=== PATIENT | female | born 1990 | race Caucasian/White ===

== ENCOUNTER 2021-06-20 09:18 | Emergency (ER) | payer OTHER, SELFPAY ==
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
[2021-06-20 10:00] VITALS: BP 116/85; PULSE 81; RESP 19; TEMP 36.6; O2SAT 100; BMI 30.7
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
--- NOTE | 2021-06-20 11:22 | PC.NURSE ---
PATIENT AWAKE, ALERT/ORIENTED X'S 3. PT STATES LEFT KNEE PAIN 8/10, RIGHT SIDED POSTERIOR PAIN 8/10. AWAITING XRAYS.
== END 2021-06-20 11:41 | disposition home or self-care (01) ==
PROVIDERS: Emergency Provider Emergency Medicine
DX: M25.462 Effusion, left knee (principal); M25.562 Pain in left knee
CPT/HCPCS: 73564; 99283

== ENCOUNTER 2022-04-01 04:42 | Emergency (ER) | payer OTHER, SELFPAY ==
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
[2022-04-01 04:55] VITALS: BP 152/82; PULSE 97; O2SAT 97
[2022-04-01 05:00] VITALS: BP 120/78; PULSE 89; RESP 14; TEMP 36.7; O2SAT 99; BMI 30.3
--- OUTSIDE RECORDS SUMMARY | 2022-04-01 05:26 | XMS_ITS | Continuity of Care Document ---
:1990 Author Organization [facility] Address [address] [place] [address]- Care Team Providers Name Role Phone Not on Staff, PCP Primary Care Physician Unavailable Encounter [facility] Date(s): 08/23/21 - 09/22/21 [facility] [address] [place] [id number] Attending Physician: Ovidio Hernandez Admitting Physician: Ovidio Hernandez Referring Physician: Ovidio Hernandez Allergies, Adverse Reactions, Alerts Substance Reaction Severity Status amoxicillin hives Active penicillin hives Active Immunizations Given and Recorded Vaccine Date Status Refusal Reason influenza virus vaccine, inactivated 05/03/21 Given influenza virus vaccine, inactivated1 05/01/18 Given tetanus/diphtheria/pertussis, acel(Tdap) 03/24/20 Recorde d Boostrix (Tdap) (oldterm) 05/01/18 Given Gardasil (oldterm)2 12/20/16 Given Gardasil (oldterm)3 08/09/16 Given pneumococcal 23-valent vaccine 08/09/16 Given pneumococcal 13-valent vaccine 02/24/15 Given Twinrix (oldterm)4 02/24/15 Given Human Papillomavirus Vaccine 06/26/08 Recorded 1Admin Note: Flucelvax [id number] Note: GARDASIL 93Admin Note: GARDASIL 94Admin Note: #1 Medications Biktarvy oral tablet 1 tablet, By Mouth, Daily, # 30 tablet, 3 Refills, Maintenance, 08/22/21 11:29:00 EDT, Tablet, [id number], Partial fill upon patient request if the prescription is for a schedule II opioid drug., 1 tablet By Mouth Daily,x30 days, 167, cm, 11/2... Start Date: 08/22/21 Stop Date: 12/20/21 Status: Ordered Problem List Condition Effective Dates Status Health Status Informant Headache(Confirmed) Active Human immunodeficiency virus Active infection(Confirmed) Obese class I(Confirmed) Active Social History Social History Type Response Smoking Status Current every day smoker entered on: 07/10/14 Sex
--- OUTSIDE RECORDS SUMMARY | 2022-04-01 05:26 | XMS_ITS | Continuity of Care Document ---
:1990 Author Organization [facility] Address [address] [place] [id number]- Care Team Providers Name Role Phone Not on Staff, PCP Primary Care Physician Unavailable Encounter [facility] Date(s): 02/03/21 - 04/28/21 [facility] [address] [place] [id number] Attending Physician: Matthew Dent MD Admitting Physician: Matthew Dent MD Referring Physician: Not on Staff, Referring MD Allergies, Adverse Reactions, Alerts Substance Reaction Severity Status amoxicillin hives Active penicillin hives Active Immunizations Given and Recorded Vaccine Date Status Refusal Reason tetanus/diphtheria/pertussis, acel(Tdap) 03/24/20 Recorde d influenza virus vaccine, inactivated1 05/01/18 Given Boostrix (Tdap) (oldterm) 05/01/18 Given Gardasil (oldterm)2 12/20/16 Given Gardasil (oldterm)3 08/09/16 Given pneumococcal 23-valent vaccine 08/09/16 Given pneumococcal 13-valent vaccine 02/24/15 Given Twinrix (oldterm)4 02/24/15 Given Human Papillomavirus Vaccine 06/26/08 Recorded 1Admin Note: Flucelvax [id number] Note: GARDASIL 93Admin Note: GARDASIL 94Admin Note: #1 Medications Biktarvy oral tablet 1 tablet, By Mouth, Daily, # 30 tablet, 3 Refills, Maintenance, 03/31/21 12:15:00 EDT, Tablet, [id number], Partial fill upon patient request if the prescription is for a schedule II opioid drug., 1 tablet By Mouth Daily,x30 days, 167,... Start Date: 03/31/21 Stop Date: 07/29/21 Status: Ordered Problem List Condition Effective Dates Status Health Status Informant Headache(Confirmed) Active Human immunodeficiency virus Active infection(Confirmed) Social History Social History Type Response Smoking Status Current every day smoker entered on: 07/10/14 Sex
--- OUTSIDE RECORDS SUMMARY | 2022-04-01 05:26 | XMS_ITS | Continuity of Care Document ---
:1990 Author Organization [facility] Address [address] [place] [address]- Care Team Providers Name Role Phone Not on Staff, PCP Primary Care Physician Unavailable Encounter [facility] Date(s): 01/28/21 - 02/27/21 [facility] [address] [place] [id number] Allergies, Adverse Reactions, Alerts Substance Reaction Severity Status amoxicillin hives Active penicillin hives Active Immunizations Given and Recorded Vaccine Date Status Refusal Reason influenza virus vaccine, inactivated1 05/01/18 Given Boostrix (Tdap) (oldterm) 05/01/18 Given Gardasil (oldterm)2 12/20/16 Given Gardasil (oldterm)3 08/09/16 Given pneumococcal 23-valent vaccine 08/09/16 Given pneumococcal 13-valent vaccine 02/24/15 Given Twinrix (oldterm)4 02/24/15 Given Human Papillomavirus Vaccine 06/26/08 Recorded 1Admin Note: Flucelvax [id number] Note: GARDASIL 93Admin Note: GARDASIL 94Admin Note: #1 Medications Genvoya oral tablet 1 tablet, By Mouth, Daily, with food, # 30 tablet, 6 Refills, Maintenance, 12/23/18 11:38:00 EDT, Tablet, 1 tablet By Mouth Daily,x30 days,Instr:with food Start Date: 12/23/18 Stop Date: 07/21/19 Status: Ordered Problem List Condition Effective Dates Status Health Status Informant Headache(Confirmed) Active Human immunodeficiency virus Active infection(Confirmed) Social History Social History Type Response Smoking Status Current every day smoker entered on: 07/10/14 Sex
--- OUTSIDE RECORDS SUMMARY | 2022-04-01 05:26 | XMS_ITS | Continuity of Care Document ---
:1990 Author Organization [facility] Address [address] [place] [address]- Care Team Providers Name Role Phone Not on Staff, PCP Primary Care Physician Unavailable Encounter [facility] Date(s): 08/09/21 - 09/08/21 [facility] [address] [place], [place] [address] Allergies, Adverse Reactions, Alerts Substance Reaction [...] Papillomavirus Vaccine 06/26/08 Recorded 1Admin Note: Flucelvax [id number] Note: GARDASIL 93Admin Note: GARDASIL 94Admin Note: #1 Medications Biktarvy oral tablet 1 tablet, By Mouth, Daily, # 30 tablet, 3 Refills, Maintenance, 08/22/21 11:29:00 EDT, Tablet, [id number], Partial fill upon patient request if the prescription is for a schedule II opioid drug., 1 tablet By Mouth Daily,x30 days, 167, cm, 04/12... Start Date: 08/22/21 Stop Date: 12/20/21 Status: Ordered Problem List Condition Effective Dates Status Health Status Informant Headache(Confirmed) Active Human immunodeficiency virus Active infection(Confirmed) Obese class I(Confirmed) Active Social History Social History Type Response Smoking Status Current every day smoker entered on: 07/10/14 Sex
[2022-04-01 05:40] LABS: MANUAL DIFF FLAG NO
[2022-04-01 05:41] LABS: Basophils Percent Auto 0.3 % (0-2); Eosinophils Absolute Auto 0.1 X10*3/uL (0.0-0.4); Eosinophils Percent Auto 0.7 % (0-4); Hematocrit 43.2 % (37.0-47.0); Imm Gran Abs Auto 0.01 X10*3/uL (0.00-0.03); Imm Gran Pct Auto 0.1 % (0.0-0.4); Lymphocytes Absolute Auto 2.6 X10*3/uL (1.2-4.9); Lymphocytes Percent Auto 36.9 % (20-40); Mean Corpuscular HGB Conc 34.7 g/dl (31.0-35.0); Mean Corpuscular Hemoglobin 31.3 pg (27.0-33.0); Mean Platelet Volume 9.6 fL (9.4-12.3); Monocytes Absolute Auto 0.4 X10*3/uL (0.1-1.2); Monocytes Percent Auto 6.1 % (2-11); Neutrophils Absolute Auto 3.9 x10*3/uL (2.0-8.3); Neutrophils Percent Auto 55.9 % (45-73); Platelet Count 222 X10*3/uL (160-400); Red Cell Distribution Width 11.9 % (11.0-16.0)
[2022-04-01 05:46] LABS: INTERNATIONAL NORM RATIO 1.1 (0.9-1.1); Prothrombin Time 12.5 SEC (10.0-13.1)
[2022-04-01 05:58] LABS: Ethanol 102 mg/dL
[2022-04-01 06:01] LABS: Alanine Aminotransferase 10 U/L (0-31); Albumin Level 4.4 g/dL (3.5-5.0); Alkaline Phosphatase 55 U/L (39-117); Anion Gap 16 (12-20); Aspartate Amino Transferase 20 U/L (5-31); Bilirubin Total 0.5 mg/dL (0.0-1.0); Blood Urea Nitrogen 10 mg/dL (9-16); Calcium 9.1 mg/dL (8.4-10.2); Carbon Dioxide 24 mmol/L (22-29); Chloride 108 mmol/L (96-108); Creatinine Clr Calc Pharmacy 95.4; Estimated Glomerular Filt Rate > 60; Glucose Random 83 mg/dL (60-115); Potassium 3.5 mmol/L (3.3-5.1); Sodium 144 mmol/L (135-145); Total Protein 7.1 g/dL (6.5-8.0)
[2022-04-01 06:04] LABS: Troponin-I High Sensitivity < 3.5 ng/L (<3.5-17.0)
[2022-04-01 06:07] LABS: HCG Quantitative < 2 mIU/mL
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
[2022-04-01] MEDS: iohexoL 350 MG/ML 100 ML INFUS..BTL IV (06:46)
[2022-04-01] MEDS: Diphth,Pertus(ACell),Tet Adult 0.5 ML SYRINGE IM (08:45)
== END 2022-04-01 08:55 | disposition home or self-care (01) ==
PROVIDERS: Student in an Organized Health Care Education/Training Program; Emergency Provider Emergency Medicine
DX: S00.83XA Contusion of other part of head, initial encounter (principal); S80.211A Abrasion, right knee, initial encounter; S00.33XA Contusion of nose, initial encounter; Y04.2XXA Assault by strike against or bumped into by another person, initial encounter; Y93.9 Activity, unspecified; Y92.9 Unspecified place or not applicable; Y99.9 Unspecified external cause status
CPT/HCPCS: 36415; 70450; 70486; 71260; 72125; 73110; 74177; 80053; 82077; 84484; 84702; 85025; 85610; 90471; 90715; 99283; 99284; Q9967

== ENCOUNTER 2022-05-06 14:34 | Emergency (ER) | payer OTHER, SELFPAY ==
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
[2022-05-06 14:51] VITALS: BP 142/86; PULSE 89; RESP 18; O2SAT 97; BMI 28.3
[2022-05-06] MEDS: Tetracaine HCl/PF 0.5% Oph Sol 4 ML DROPS 1 DROP EYE-RIGHT (16:20)
[2022-05-06] MEDS: Fluorescein Sodium STRIP 1 STRIP EYE-RIGHT (16:21)
== END 2022-05-06 16:39 | disposition home or self-care (01) ==
PROVIDERS: Emergency Provider Emergency Medicine
DX: S05.01XA Injury of conjunctiva and corneal abrasion without foreign body, right eye, initial encounter (principal); W40.8XXA Explosion of other specified explosive materials, initial encounter; Y93.89 Activity, other specified; Y92.9 Unspecified place or not applicable; Y99.0 Civilian activity done for income or pay
CPT/HCPCS: 99283

== ENCOUNTER 2022-05-17 10:13 | Emergency (ER) | payer OTHER, SELFPAY ==
--- NOTE | 2022-05-17 11:45 | ED.URI ---
HPI - URI/Sore Throat General Chief Complaint: Upper Respiratory Symptoms <Priyanka Peters MD - Last Filed: 05/17/22 11:45> Stated Complaint: Cough Swollen Glands <Priyanka Peters MD - Last Filed: 05/17/22 11:45> Time Seen by Provider: 05/17/22 12:47 <Priyanka Peters MD - Last Filed: 05/17/22 11:45> Related Data Home Medications: Previous Rx's Medication Instructions Recorded naproxen 500 mg tablet 500 mg PO BID PRN pain #20 tabs 06/20/21 ondansetron 4 mg disintegrating 4 mg PO Q8H PRN nausea and 04/01/22 tablet vomiting #20 tabs sulfacetamide sodium 10 % eye drops 1 drp ophthalmic (eye) Q3H #5 mL 05/06/22 <Priyanka Peters MD - Last Filed: 05/17/22 11:45> Allergies/Adverse Reactions: Allergies Allergy/AdvReac Type Severity Reaction Status Date / Time amoxicillin Allergy Anaphylaxis Verified 05/17/22 11:51 Penicillins Allergy Difficulty Verified 05/17/22 11:52 Swallowing <Priyanka Peters MD - Last Filed: 05/17/22 11:45> [facility] Social History Social History: Social History Advance Directives: No Advance Directives Information Provided: No <Priyanka Peters MD - Last Filed: 05/17/22 11:45> Physical Exam Vital Signs: Vital Signs: Last Vital Signs Temp 97.0 F 05/17/22 11:50 Pulse 84 05/17/22 11:50 Resp 20 05/17/22 11:50 BP 121/58 L 05/17/22 11:50 Pulse Ox 99 05/17/22 11:50 O2 Del Method 05/17/22 11:50 BMI result Body Mass Index 29.1 <Priyanka Peters MD - Last Filed: 05/17/22 11:45> Vital Signs: Last Vital Signs Temp 97.0 F 05/17/22 11:50 Pulse 84 05/17/22 11:50 Resp 20 05/17/22 11:50 BP 121/58 L 05/17/22 11:50 Pulse Ox 99 05/17/22 11:50 O2 Del Method 05/17/22 11:50 BMI result Body Mass Index 29.1 <Miriam Johnson NP - Last Filed: 05/17/22 13:32> Course Course Course Narrative: RME positive coughing congestion upper respiratory symptoms flu RSV COVID test sent. Patient also complaining of some swelling in the glands. A rapid strep was sent. Patient was put back in triage <Priyanka Peters MD - Last Filed: 05/17/22 11:45> Medical Decision Making Medical Decision Making MDM Narrative: 10-year-old well appearing female with no significant past medical history presents to the emergency department today, with her mom, with 5 day symptoms of cough with associated headache, and nasal congestion. Serology postive for RSV. Physical exam, history, and diagnostics discussed with patient and family with no unanswered questions. Educated to manage symptoms at home with [id number] Tylenol and ibuprofen for discomfort and fever and to use asov-hfs-cgxdbfw cough medicines or mucus reducing medications. Educated to please return to the emergency department with shortness of breath, chest pain, worsening headache, worsening cough, nausea, or vomiting. Recommended to follow-up with your primary care provider for further treatment and management. <Miriam Johnson NP - Last Filed: 05/17/22 13:32> Discharge Plan Discharge Clinical Impression: Upper respiratory infection, Viral infection <Priyanka Peters MD - Last Filed: 05/17/22 11:45> Patient Disposition: Home, Self-Care <Priyanka Peters MD - Last Filed: 05/17/22 11:45> Instructions: Upper Respiratory Infection (ED), Viral Syndrome (ED), Warm Compress or Soak (ED) <Priyanka Peters MD - Last Filed: 05/17/22 11:45> Additional Instructions: Please manage symptoms at home with [id number] Tylenol and ibuprofen for discomfort and fever. You can use dykd-vld-ievjskc cough medicines or mucus producing medications. Please return to the emergency department with shortness of breath, chest pain, worsening headache, worsening cough, nausea, or vomiting. Please follow-up with your primary care provider for further treatment and management. <Priyanka Peters MD - Last Filed: 05/17/22 11:45> Prescriptions: No Action naproxen 500 mg tablet 500 mg PO BID PRN (Reason: pain) Qty: 20 0RF ondansetron 4 mg tablet,disintegrating 4 mg PO Q8H PRN (Reason: nausea and vomiting) Qty: 20 0RF sulfacetamide sodium 10 % drops 1 drp ophthalmic (eye) Q3H Qty: 5 0RF <Priyanka Peters MD - Last Filed: 05/17/22 11:45> Referrals: [facility] Family Medicine [Provider Group] [facility] Group] [facility] [Provider Group] <Priyanka Peters MD - Last Filed: 05/17/22 11:45> Stand Alone Forms: Work/School Release <Priyanka Peters MD - Last Filed: 05/17/22 11:45> Interventions: ED Discharge Assessment Last Done: 05/17/22 13:28 <Priyanka Peters MD - Last Filed: 05/17/22 11:45> Discharge Date/Time: 05/17/22 13:28 <Priyanka Peters MD - Last Filed: 05/17/22 11:45> Print Language: Italian <Priyanka Peters MD - Last Filed: 05/17/22 11:45>
[2022-05-17 11:50] VITALS: BP 121/58; PULSE 84; RESP 20; TEMP 36.1; O2SAT 99; BMI 29.1
[2022-05-17 12:24] LABS: Strep A Nucleic Acid Negative (Negative)
[2022-05-17 12:50] LABS: Influenza A PCR NEGATIVE (Negative); Influenza B PCR NEGATIVE (Negative); Resp Syncy Virus RNA Qual PCR NEGATIVE (Negative); SARS COV2 PCR INHOUSE NEGATIVE (Negative)
--- NOTE | 2022-05-17 13:21 | ED.URI ---
HPI - URI/Sore Throat General Chief Complaint: Upper Respiratory Symptoms Stated Complaint: Cough Swollen Glands Time Seen by Provider: 05/17/22 12:47 History of Present Illness HPI Narrative: 31-year-old female with no significant past medical history presents to the emergency department for 2 day history of sore throat, swollen glands, cough, and headache. She states her child has recently been ill with similar symptoms. She reports her headache worsens when she coughs and feels like a pressure on the left side of her head into her jaw. She states the headache lessens in intensity when she is resting, and not coughing. She used in at home COVID test which came back negative. She denies any chest pain, shortness of breath, pain on inspiration, fever, chills, abdominal pain. She states she does smoke cigarettes in and outside of the house. MD elicited complaint: cough and sore throat Onset (ago): day(s) (2) Consistency: constant Severity: mild Description of mucous: clear and green Able to tolerate fluids by mouth: Yes Exacerbating factors: swallowing Relieving factors: nothing Context: sick contacts Associated symptoms: denies other symptoms Treatments prior to arrival: none Related Data Previous Rx's Medication Instructions Recorded naproxen 500 mg tablet 500 mg PO BID PRN pain #20 tabs 06/20/21 ondansetron 4 mg disintegrating 4 mg PO Q8H PRN nausea and 04/01/22 tablet vomiting #20 tabs sulfacetamide sodium 10 % eye drops 1 drp ophthalmic (eye) Q3H #5 mL 05/06/22 Allergies Allergy/AdvReac Type Severity Reaction Status Date / Time amoxicillin Allergy Anaphylaxis Verified 05/17/22 11:51 Penicillins Allergy Difficulty Verified 05/17/22 11:52 Swallowing Review of Systems Review of Systems: Yes all other systems are reviewed and are negative Constitutional: Constitutional: Reports no additional constitutional complaints, Denies body ache(s), Denies chills, Denies fever(s) and Reports headache(s) Eyes: Eyes: Reports no additional eye complaints and Denies change in vision ENT: Reports system reviewed and no additional complaints, except as documented, Reports Normal hearing present, Reports headache(s), Denies hoarseness, Reports nasal congestion, Reports nasal discharge, Reports sore throat and Reports throat swelling Cardiovascular: Cardiovascular: Reports no additional cardiovascular complaints, Denies chest pain and Denies dyspnea Respiratory: Respiratory: Reports no additional respiratory complaints, Denies pain on inspiration and Denies dyspnea Gastrointestinal: Gastrointestinal: Reports no additional gastrointestinal complaints, Denies constipation, Denies diarrhea, Denies nausea and Denies vomiting Musculoskeletal: Musculoskeletal: Reports no additional musculoskeletal complaints, Denies myalgias, Denies numbness and Denies tingling Integumentary/Breasts: Skin/Breast: Reports system reviewed and no additional complaints, except as docu, Denies lesions, Denies rash and Denies sores Neurologic: Reports system reviewed and no additional complaints, except as documented, Reports Normal hearing present, Reports headache(s), Denies numbness and Denies tingling Allergic/Immunologic: Allergic/Immunologic: Reports throat swelling PMFSH Past Medical History Attestation statement: The following information was validated with the patient. Source: old records reviewed and obtained from family Social History Social History Advance Directives: No Advance Directives Information Provided: No Physical Exam Vital Signs: Vital Signs: Last Vital Signs Temp 97.0 F 05/17/22 11:50 Pulse 84 05/17/22 11:50 Resp 20 05/17/22 11:50 BP 121/58 L 05/17/22 11:50 Pulse Ox 99 05/17/22 11:50 O2 Del Method 05/17/22 11:50 BMI result Body Mass Index 29.1 Const: General: cooperative, no acute distress, alert and awake Nutritional Appearance: average body habitus Orientation/consciousness: patient oriented x3 Limitations: no limitations HEENT: Head: Yes normal to inspection, Yes normocephalic and Yes atraumatic Ears: hearing grossly normal bilaterally, external ears normal and TM's normal bilaterally General nose exam: Normal external nose present and Normal nares present Face and sinus: Yes normal facial exam and Yes sinuses nontender Mouth: Normal oral and palatal mucosa present and moist mucous membranes Teeth and gingiva: dentition normal Throat: Yes posterior oropharynx normal, Yes tonsils normal, Yes uvula midline and No cobblestoning Eyes: General: appearance normal, both eyes and all related structures Visual Lopes: normal visual lopes by confrontation Alignment and Position: alignment normal Periorbital: periorbital findings normal Eyelids: Yes eyelids normal Conjunctivae: conjunctivae normal Sclerae: sclerae normal Corneas: corneas normal Pupils: Equal, round and reactive pupils present EOM: EOMs intact bilaterally Neck: Neck: Yes normal visual inspection, Yes full ROM, No no lymphadenopathy, Yes trachea midline, No anterior neck swelling and No submandibular swelling Chest: Chest palpation & inspection: normal inspection of the chest Resp: Effort & Inspection: normal respiratory effort, Actively coughing and not labored Auscultation: clear to auscultation bilaterally, no crackles, no rhonchi and no wheezes Cardio: Rate: regular rate Rhythm: regular rhythm Skin: General skin exam: no rashes or lesions noted Neuro: General: patient oriented x3 Cranial nerves: Yes Equal, round and reactive pupils present and Yes Normal hearing present Cognition (Neuro): normal cognition Gait exam (Neuro): Normal gait present Motor exam (neuro): 5/5 motor strength present throughout Extrem: General: Yes normal to inspection, Yes full ROM and Yes capillary refill normal Psych: Appearance: grossly normal Mental Status: mental status grossly normal Speech and movement: Normal speech and movement present Affect: normal affect Attitude: cooperative Thought process: Normal thought process present Thought content: Normal thought content present Insight: Good insight present (Psych) Judgement: Good judgement present (Psych) Medical Decision Making Medical Decision Making MDM Narrative: 31-year-old female with no significant past medical history presents to the emergency department for 2 day history of sore throat, swollen glands, cough, and headache that worsens when she coughs with known sick contacts at home. Serology negative for flu a, flu B, RSV, or COVID. Physical exam inconsistent with lymphadenopathy or tonsillar exudate. Suspected viral upper respiratory infection. Physical exam, history, diagnostics, and plan discussed with patient with no unanswered questions at this time. Educated to manage symptoms at home with wntz-xvz-woqutvl Tylenol and ibuprofen for discomfort and fever and to use uynj-gjr-fcrdops cough medicines or mucus reducing medications. Educated to return to the emergency department with shortness of breath, chest pain, worsening headache, worsening cough, nausea, or vomiting. Recommended to follow-up with your primary care provider for further treatment and management. Differential Diagnoses: Differential diagnosis (upper respiratory infection) Discharge Plan Discharge Clinical Impression: Upper respiratory infection, Viral infection Patient Disposition: Home, Self-Care Instructions: Upper Respiratory Infection (ED), Viral Syndrome (ED), Warm Compress or Soak (ED) Additional Instructions: Please manage symptoms at home with cbum-nms-cuuhptg Tylenol and ibuprofen for discomfort and fever. You can use ndez-hhl-nccklhd cough medicines or mucus producing medications. Please return to the emergency department with shortness of breath, chest pain, worsening headache, worsening cough, nausea, or vomiting. Please follow-up with your primary care provider for further treatment and management. Prescriptions: No Action naproxen 500 mg tablet 500 mg PO BID PRN (Reason: pain) Qty: 20 0RF ondansetron 4 mg tablet,disintegrating 4 mg PO Q8H PRN (Reason: nausea and vomiting) Qty: 20 0RF sulfacetamide sodium 10 % drops 1 drp ophthalmic (eye) Q3H Qty: 5 0RF Referrals: [facility] Family Medicine [Provider Group] [facility]] [facility] [Provider Group] Stand Alone Forms: Work/School Release Interventions: ED Discharge Assessment Last Done: 05/17/22 13:28 Discharge Date/Time: 05/17/22 13:28 Print Language: Korean
== END 2022-05-17 13:28 | disposition home or self-care (01) ==
PROVIDERS: Emergency Medicine Emergency Medical Services; Physician Assistant Medical; Emergency Provider Emergency Medicine Emergency Medical Services
DX: J06.9 Acute upper respiratory infection, unspecified (principal); B34.9 Viral infection, unspecified; R05.9 Cough, unspecified; R51.9 Headache, unspecified; Z20.822 Contact with and (suspected) exposure to COVID-19
CPT/HCPCS: 0241U; 36415; 87651; 99282; 99283

== ENCOUNTER 2022-06-12 12:14 | Emergency (ER) | payer OTHER, SELFPAY ==
[2022-06-12 13:17] VITALS: BP 167/89; PULSE 87; RESP 16; TEMP 36.9; O2SAT 97; BMI 29.1
--- NOTE | 2022-06-12 13:17 | ED_ITS ---
HPI - General Adult General Chief complaint: Upper Respiratory Symptoms <LILIA Campos - Last Filed: 06/12/22 13:20> Stated complaint: dizzy weak <LILIA Campos Last Filed: 06/12/22 13:20> Time Seen by Provider: 06/12/22 14:26 <LILIA Campos Last Filed: 06/12/22 13:20> Source: patient <Elsie Richey NP - Last Filed: 06/12/22 15:25> Mode of arrival: ambulatory <Elsie Richey NP - Last Filed: 06/12/22 15:25> Limitations: no limitations <JARAD Cueva Last Filed: 06/12/22 15:25> History of Present Illness HPI narrative: 31-year-old female here with sore throat, cough, body aches, generalized malaise, bilateral ear pain for 3 days. No fevers, vomiting, diarrhea, chest pain, shortness of breath. <JARAD Cueva Last Filed: 06/12/22 15:25> Related Data Home medications: Previous Rx's Medication Instructions Recorded naproxen 500 mg tablet 500 mg PO BID PRN pain #20 tabs 06/20/21 ondansetron 4 mg disintegrating 4 mg PO Q8H PRN nausea and 04/01/22 tablet vomiting #20 tabs sulfacetamide sodium 10 % eye drops 1 drp ophthalmic (eye) Q3H #5 mL 05/06/22 azithromycin 250 mg tablet See Rx Instructions PO .COMPLEX #6 06/12/22 tabs <LILIA Campos Last Filed: 06/12/22 13:20> Allergies/adverse reactions: Allergies Allergy/AdvReac Type Severity Reaction Status Date / Time amoxicillin Allergy Anaphylaxis Verified 05/17/22 11:51 Penicillins Allergy Difficulty Verified 05/17/22 11:52 Swallowing <LILIA Campos Last Filed: 06/12/22 13:20> Review of Systems Review of Systems: Yes all other systems are reviewed and are negative <JARAD Cueva Last Filed: 06/12/22 15:25> Constitutional: Constitutional: Reports no additional constitutional complaints, Reports body ache(s), Denies chills, Denies fever(s), Reports headache(s), Reports malaise and Denies weakness <Elsie Richey W[employer]LESS CONSTRUCTION MANAGER - Last Filed: 06/12/22 15:25> Eyes: Eyes: Reports no additional eye complaints and Denies change in vision <Elsie Richey [employer]ESS CONSTRUCTION MANAGER - Last Filed: 06/12/22 15:25> ENT: Reports system reviewed and no additional complaints, except as documented, Denies dizziness, Reports headache(s), Denies nasal congestion, Denies nasal discharge, Denies neck pain and Reports sore throat <Elsie Richey [employer]LESS CONSTRUCTION MANAGER - Last Filed: 06/12/22 15:25> Cardiovascular: Cardiovascular: Reports no additional cardiovascular complaints, Denies chest pain, Denies leg edema and Denies dyspnea <Elsie Richey [employer]LESS CONSTRUCTION MANAGER - Last Filed: 06/12/22 15:25> Respiratory: Respiratory: Reports no additional respiratory complaints, Reports cough and Denies dyspnea <Elsie Richey [employer]LESS CONSTRUCTION MANAGER - Last Filed: 06/12/22 15:25> Gastrointestinal: Gastrointestinal: Reports no additional gastrointestinal complaints, Denies abdominal pain, Denies diarrhea, Denies nausea and Denies vomiting <Elsie Richey [employer]LESS CONSTRUCTION MANAGER - Last Filed: 06/12/22 15:25> Genitourinary: Genitourinary: Reports no additional female genitourinary complaints and Denies urinary incontinence <Elsie Richey [employer]LESS CONSTRUCTION MANAGER - Last Filed: 06/12/22 15:25> Musculoskeletal: Musculoskeletal: Reports no additional musculoskeletal complaints, Denies back pain, Denies arthralgias, Denies joint swelling, Denies neck pain, Denies numbness and Denies tingling <Elsie Richey [employer]LESS CONSTRUCTION MANAGER - Last Filed: 06/12/22 15:25> Integumentary/Breasts: Skin/Breast: Reports system reviewed and no additional complaints, except as docu and Denies rash <Elsie Richey W[employer]LESS CONSTRUCTION MANAGER - Last Filed: 06/12/22 15:25> Neurologic: Reports system reviewed and no additional complaints, except as documented, Denies dizziness, Reports headache(s), Denies numbness, Denies tingling and Denies weakness <Elsie Richey NP - Last Filed: 06/12/22 15:25> [facility] Past Medical History Attestation statement: The following information was validated with the patient. <Elsie Richey NP - Last Filed: 06/12/22 15:25> Source: old records reviewed and nursing notes reviewed <Elsie Richey NP - Last Filed: 06/12/22 15:25> Social History Social History: Social History Advance Directives: No Advance Directives Information Provided: No <LILIA Campos - Last Filed: 06/12/22 13:20> Physical Exam ED Vital Signs: Vital Signs - 24 hr 06/12/22 13:17 06/12/22 15:19 Temperature 98.5 F 98.4 F Pulse Rate 87 89 Respiratory Rate 16 18 Blood Pressure 167/89 H 137/78 Pulse Oximetry 97 96 Oxygen Delivery Method Room Air Room Air BMI result Body Mass Index 29.1 <LILIA Campos - Last Filed: 06/12/22 13:20> Vital Signs - 24 hr 06/12/22 13:17 06/12/22 15:19 Temperature 98.5 F 98.4 F Pulse Rate 87 89 Respiratory Rate 16 18 Blood Pressure 167/89 H 137/78 Pulse Oximetry 97 96 Oxygen Delivery Method Room Air Room Air BMI result Body Mass Index 29.1 <Elsie Richey NP - Last Filed: 06/12/22 15:25> Const General: cooperative, healthy appearing, comfortable and no acute distress <Elsie Richey NP - Last Filed: 06/12/22 15:25> Orientation/consciousness: patient oriented x3 <Elsie Richey NP - Last Filed: 06/12/22 15:25> Limitations: no limitations <Elsie Richey NP - Last Filed: 06/12/22 15:25> HENMT Head: Yes normal to inspection <Elsie Richey NP - Last Filed: 06/12/22 15:25> Ears: TM abnormal bulging and erythematous <Elsie Richey NP - Last Filed: 06/12/22 15:25> General nose exam: Normal external nose present <Elsie Richey NP - Last Filed: 06/12/22 15:25> Mouth: Normal oral and palatal mucosa present <Elsie Richey NP - Last Filed: 06/12/22 15:25> Throat: Yes posterior oropharynx normal, Yes tonsils normal and Yes uvula midline <Elsie Richey NP - Last Filed: 06/12/22 15:25> Eyes General: appearance normal, both eyes and all related structures <Elsie Richey NP - Last Filed: 06/12/22 15:25> Pupils: Equal, round and reactive pupils present <Elsie Richey NP - Last Filed: 06/12/22 15:25> Neck Neck: Yes normal visual inspection, Yes full ROM, Yes no lymphadenopathy and Yes no meningeal signs <Elsie Richey NP - Last Filed: 06/12/22 15:25> Chest Chest palpation & inspection: normal inspection of the chest <Elsie Richey NP - Last Filed: 06/12/22 15:25> Resp Effort & Inspection: normal respiratory effort <Elsie Richey NP - Last Filed: 06/12/22 15:25> Auscultation: clear to auscultation bilaterally <Elsie Richey NP - Last Filed: 06/12/22 15:25> Cardio Rate: regular rate <Elsie Richey NP - Last Filed: 06/12/22 15:25> Rhythm: regular rhythm <Elsie Richey NP - Last Filed: 06/12/22 15:25> Peripheral pulses: Peripheral pulses 2+ throughout <Elsie Richey NP - Last Filed: 06/12/22 15:25> GI Inspection: Yes normal to inspection <Elsie Richey NP - Last Filed: 06/12/22 15:25> Palpation (GI): Soft to palpation and nontender <Elsie Richey NP - Last Filed: 06/12/22 15:25> General: Yes no CVA tenderness <Elsie Richey NP - Last Filed: 06/12/22 15:25> Back/Spine/Pelvis Back: no CVA tenderness <Elsie Richey NP - Last Filed: 06/12/22 15:25> Thoracic/Lumbar Spine: thoracic and lumbar spine normal to inspection <Elsie Richey NP - Last Filed: 06/12/22 15:25> Skin General skin exam: no rashes or lesions noted <Elsie Richey NP - Last Filed: 06/12/22 15:25> Neuro General: patient oriented x3, moves all extremities and no meningeal signs <Elsie Richey NP - Last Filed: 06/12/22 15:25> Cranial nerves: Yes Equal, round and reactive pupils present <Elsie Richey NP - Last Filed: 06/12/22 15:25> Gait exam (Neuro): Normal gait present <Elsie Richey NP - Last Filed: 06/12/22 15:25> Course Course Course Narrative: E-13:20PM - 31yoF presenting to the ED c c/o 2 days or a sore throat, chills, fatigue, body aches, no appetite and a Cough with blood streaked emesis. Denies any other symptoms related to this. Works at the [employer]. Plan: Will order COVID/RSV/flu swab and rapid strep. Patient will be sent back to the waiting room to be evaluated in [facility]. <LILIA Campos - Last Filed: 06/12/22 13:20> Reevaluation(s) Reevaluation #1: COVID screen is positive. No hypoxia tachypnea. Lungs are clear. Patient has otitis media on exam will require a course of antibiotics. Reviewed worrisome signs and symptoms of when to return to the emergency room. Comfortable plan for discharge home. <Elsie Richey NP - Last Filed: 06/12/22 15:25> Medical Decision Making Medical Decision Making MDM Narrative: 31-year-old female here with 3 days of generalized malaise, cough, sore throat, ear pain, headache, chills. Exam consistent bilateral OM Otherwise exam normal Vital stable Will send testing for flu, COVID, RSV <Elsie Richey NP - Last Filed: 0 06/12/22 15:25> Differential Diagnosis Differential Diagnoses: The differential diagnosis associated with the presentation includes <Elsie Richey NP - Last Filed: 06/12/22 15:25> Otitis media, influenza, viral syndrome <Elsie Richey NP - Last Filed: 06/12/22 15:25> Lab Data MDM Lab Attestation statement: I reviewed the patient's lab results. <Elsie Richey NP - Last Filed: 06/12/22 15:25> Labs: Lab Results 06/12/22 06/12/22 Range/Units 14:22 14:22 Influenza Type A (PCR) NEGATIVE (Negative) Influenza Type B (PCR) NEGATIVE (Negative) RSV RNA Qual (PCR) NEGATIVE (Negative) SARS-CoV-2 RNA (RT-PCR) POSITIVE A (Negative) S. pyogenes GrpA REYES Negative (Negative) <LILIA Campos - Last Filed: 06/12/22 13:20> Lab Results 06/12/22 06/12/22 Range/Units 14:22 14:22 Influenza Type A (PCR) NEGATIVE (Negative) Influenza Type B (PCR) NEGATIVE (Negative) RSV RNA Qual (PCR) NEGATIVE (Negative) SARS-CoV-2 RNA (RT-PCR) POSITIVE A (Negative) S. pyogenes GrpA REYES Negative (Negative) <Elsie Richey NP - Last Filed: 06/12/22 15:25> Prescription Management I considered prescription management with: Antiviral <Elsie Richey NP - Last Filed: 06/12/22 15:25> COVID screen positive. I discussed of the medication Paxlovid with the patient. We discussed that the medication is not FDA approved and there is only an emergency use authorization for the medication. Discussed the course of medication and common side effects. At this point patient declined treatment with this medication. <Elsie Richey NP - Last Filed: 06/12/22 15:25> Discharge Plan Discharge Clinical Impression: Otitis media, COVID-19 <LILIA Campos - Last Filed: 06/12/22 13:20> Patient Disposition: Home, Self-Care <LILIA Campos - Last Filed: 06/12/22 13:20> Instructions: Ear Infection (ED), COVID-19 (Coronavirus Disease 2019) (ED) <LILIA Campos - Last Filed: 06/12/22 13:20> Additional Instructions: Testing for strep, flu. RSV are all negative Alternate Motrin or Tylenol for pain or fever Increase fluids, rest Take the medications as prescribed Follow-up with primary care doctor for any persistent symptoms I offercalvin soriano to you for the treatment of COVID but you declined this <LILIA Campos - Last Filed: 06/12/22 13:20> Prescriptions: New azithromycin 250 mg tablet See Rx Instructions .ROUTE .COMPLEX Qty: 6 0RF Rx Instructions: For 250 mg dose pack: take 500 mg today (day 1), then 250 mg for 4 days (days 2-5) No Action naproxen 500 mg tablet 500 mg PO BID PRN (Reason: pain) Qty: 20 0RF ondansetron 4 mg tablet,disintegrating 4 mg PO Q8H PRN (Reason: nausea and vomiting) Qty: 20 0RF sulfacetamide sodium 10 % drops 1 drp ophthalmic (eye) Q3H Qty: 5 0RF <LILIA Campos - Last Filed: 06/12/22 13:20> Referrals: Physician,Unknown J [Primary Care Provider] - <LILIA Campos - Last Filed: 06/12/22 13:20> Stand Alone Forms: Work/School Release <LILIA Campos - Last Filed: 06/12/22 13:20>
[2022-06-12 14:49] LABS: IDNOW Serial# 6674DD1D; Strep A Nucleic Acid Negative (Negative)
[2022-06-12 15:15] LABS: Influenza A PCR NEGATIVE (Negative); Influenza B PCR NEGATIVE (Negative); Resp Syncy Virus RNA Qual PCR NEGATIVE (Negative); SARS COV2 PCR INHOUSE POSITIVE (Negative)
[2022-06-12 15:19] VITALS: BP 137/78; PULSE 89; RESP 18; TEMP 36.9; O2SAT 96
== END 2022-06-12 15:40 | disposition home or self-care (01) ==
PROVIDERS: Physician Assistant Medical; Emergency Provider Student in an Organized Health Care Education/Training Program
DX: U07.1 COVID-19 (principal); H66.93 Otitis media, unspecified, bilateral
CPT/HCPCS: 0241U; 87651; 99282; 99283

== ENCOUNTER 2022-12-28 08:41 | Emergency (ER) | payer MEDICAID, SELFPAY ==
--- NOTE | ~2022-12-28 | XR_ITS ---
EXAMINATION: XR SHOULDER, RIGHT CLINICAL INFORMATION: Right shoulder pain. COMPARISON: None available. TECHNIQUE: Three views of the right shoulder. FINDINGS: Glenohumeral and acromioclavicular alignment is anatomic with normal joint space. No displaced fracture or dislocation. 7 mm ovoid calcification along the proximal humeral shaft. XR/XR shoulder RT min 2V IMPRESSION: No acute abnormality.
[2022-12-28 08:47] VITALS: BP 126/85; PULSE 81; RESP 16; TEMP 36.3; O2SAT 99; BMI 28.0
[2022-12-28] MEDS: oxyCODONE HCl Immed Release 5 MG TABLET PO (09:32)
[2022-12-28] MEDS: NaPROXEN 500 MG TABLET PO (09:33)
[2022-12-28] MEDS: predniSONE 20 MG TABLET 60 MG PO (09:33)
--- NOTE | 2022-12-28 09:46 | PC.NURSE ---
patient a&ox3, pt medicated for rt arm pain 03/20, + csm/pulses to extremity, family at bedside, call julian within reach, will continue to monitor
[2022-12-28 10:13] VITALS: BP 121/82; PULSE 78; RESP 16; TEMP 36.6; O2SAT 100
--- NOTE | 2022-12-28 10:37 | ED.EXTPRO ---
HPI - Extremity Problem General Chief complaint: Extremity Injury, Upper Stated complaint: swollen shoulders Time Seen by Provider: 12/28/22 09:20 Source: patient Mode of arrival: ambulatory Limitations: no limitations History of Present Illness HPI Narrative: 32-year-old female presenting to the ER with complaints of right shoulder pain that has been present over the past 8 months although progressively getting worse. 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 She does get massages from her significant other almost daily and she does range of motion so her shoulder does not get stiff. 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 She has limited range of motion of her right shoulder joint due to this pain. She denies any new injuries, dizziness, headaches, neck pain/ stiffness, trouble swallowing or breathing, chest pain or shortness of breath, dyspnea exertion orthopnea, palpitations paresthesias, history of DVT or PE, abdominal pain, nausea, recent immobilization or surgery, history of cancer, hypercoagulation disorder, lower extremity edema or calf tenderness or any other symptoms complaints or concerns at this time. MD Complaint: joint swelling and joint pain Onset (ago): month(s) ( Months worse in the past few days) Pain Consistency: constant Location: right and upper extremity Quality: aching Radiation: none Relieving factors: nothing Exacerbating factors: range of motion and palpation Associated symptoms: denies other symptoms Related Data Previous Rx's Medication Instructions Recorded naproxen 500 mg tablet 500 mg PO BID PRN pain #20 tabs 06/20/21 ondansetron 4 mg disintegrating 4 mg PO Q8H PRN nausea and 04/01/22 tablet vomiting #20 tabs sulfacetamide sodium 10 % eye drops 1 drp ophthalmic (eye) Q3H #5 mL 05/06/22 azithromycin 250 mg tablet See Rx Instructions PO .COMPLEX #6 06/12/22 tabs cyclobenzaprine 10 mg tablet 10 mg PO Q8H #10 tabs 12/28/22 naproxen 500 mg tablet 500 mg PO BID PRN pain #10 tabs 12/28/22 oxycodone 5 mg tablet 5 mg PO Q6H PRN pain #10 tabs 12/28/22 prednisone 20 mg tablet 40 mg PO DAILY inflammation 5 days 12/28/22 #10 tabs Allergies Allergy/AdvReac Type Severity Reaction Status Date / Time amoxicillin Allergy Anaphylaxis Verified 05/17/22 11:51 Penicillins Allergy Difficulty Verified 05/17/22 11:52 Swallowing Review of Systems Review of Systems: Constitutional : No Weight loss, No Fever, No Chills, No Night Sweats, No Fatigue, No Malaise ENT/Mouth : No Hearing loss, No Ear Pain, No Nasal Congestion, No Sinus Pain, No Hoarseness, No sore throat, No Rhinorrhea, No Swallowing Difficulty Eyes: No Eye Pain, No Swelling, No Redness, No Foreign Body, No Discharge, No Vision Changes Cardiovascular : No Chest Pain, No SOB, No Dyspnea on Exertion, No Orthopnea, No Edema, No Palpitations Respiratory : No Cough, No Sputum, No Wheezing, No Smoke Exposure, No Dyspnea Gastrointestinal : No Nausea, No Vomiting, No Diarrhea, No Constipation, No abdominal Pain, No Hematochezia, No Melena Genitourinary : no irregular bleeding, No Dysuria, No Urinary Frequency, No Hematuria, No Urinary Incontinence, No Urgency, No Flank Pain, No Urinary Flow Changes, No Hesitancy Musculoskeletal : + Right shoulder joint pain, No Myalgias, No Joint Swelling Skin : No Skin Lesions, No rash Neuro : No Weakness, No Numbness, No Paresthesias, No Loss of Consciousness, No Dizziness, No Headache Psych : No Anxiety/Panic, No Depression, No SI/HI/AH/VH, No Social Issues, Heme/Lymph: No Bruising, No Bleeding,No Lymphadenopathy Endocrine : No Polyuria, No Polydipsia, No Temperature Intolerance Yes all other systems are reviewed and are negative [facility] Past Medical History Attestation statement: The following information was validated with the patient. Source: old records reviewed and nursing notes reviewed Medical History (Updated 12/28/22 @ 10:39 by LILIA Campos) delivery delivered Surgical History (Updated 12/28/22 @ 09:35 by Carolyn Cifuentes RN) H/O hand surgery Social History Social History Alcohol intake: never Smoked in Last 30 Days: Yes Use of substances other than those prescribed or required for medical reasons: Yes Substance Use Type: Marijuana Substance Use Frequency: Occasionally Advance Directives: No Patient : No Physical Exam Vital Signs: Vital Signs: Last Vital Signs Temp 97.9 F 12/28/22 10:13 Pulse 78 12/28/22 10:13 Resp 16 12/28/22 10:13 BP 121/82 12/28/22 10:13 Pulse Ox 100 12/28/22 10:13 O2 Del Method Room Air 12/28/22 10:13 BMI result Body Mass Index 28.0 Vital signs reviewed. Blood pressure normal. Pulse normal. Respiration normal. Oxygen normal. Temperature normal. Appearance: Alert. Oriented X3. No acute distress. Head: Normal external exam. Normocephalic. Atraumatic. Eyes: PERRLA. EOMI. Conjunctiva and sclera normal. Eyelids normal. ENT: EAC normal. TM's Normal. Pharynx normal. Uvula midline. Moist mucous membranes. No lesions/ulcerations or masses noted on the tongue. Normal voice. No trismus noted. No drooling noted. No muffled voice noted. Neck: Normal inspection. Neck supple. FROM. No adenopathy. Thyroid Normal. No meningeal signs. CVS: Normal heart rate and rhythm. Heart sound normal. Pulses normal throughout. No murmurs/rales/gallops. Respiratory: No respiratory distress. Painless inspiration. Breath sounds normal. No wheezes/rales/rhonchi noted. Chest nontender. No accessory muscle usage noted or decreased air movement noted. Abdomen: Soft and nontender. Back: Full range of motion noted. Nontender. Skin: Skin warm and dry. Normal skin color. Normal skin turgor. No rashes/lesions/lacerations noted. Extremities: Patient with tenderness palpation to right AC joint with limited range of motion with shoulder flexion /shoulder extension shoulder abduction and scapular range of motion. No obvious ligamentous or tendon injury noted. Not consistent muscle rupture. No pitting edema. No erythema. Otherwise all other Extremities exhibit normal range of motion and nontender. Neuro: Oriented X 3. No motor deficit. No sensory deficit. Reflexes normal. Normal steady gait. No focal neuro deficits noted. CN's II-XII intact bilaterally? Vascular: + radial pulses. Normal cap refill. No cyanosis noted to upper extremity nails Course Course Course Narrative: patient with most likely right shoulder sprain/ strain/ muscle spasm. no risk factors for DVT. Also patient does not have any pitting edema. Not consistent with muscle rupture. Not consistent with obvious ligamentous or tendon injury. Not consistent with septic joint. Not consistent with obvious fracture or dislocation. X-ray obtained and negative for any acute processes only chronic changes. Therefore at this time will DC home with symptomatic treatment instructions to follow-up with PCP for physical therapy referral and further evaluation treatment and possibly Orthopedics. And to return if any new or worsening symptoms. Patient understands agrees with this plan. Medications Administered Discontinued Medications Generic Name Dose Route Start Last Admin Trade Name Freq PRN Reason Stop Dose Admin Naproxen 500 mg 12/28/22 09:27 12/28/22 09:33 Naproxen 500 Mg Tablet PO 12/28/22 09:28 500 mg ONCE ONE Administration Oxycodone HCl 5 mg 12/28/22 09:27 12/28/22 09:32 Oxycodone Hcl Immed Release 5 Mg Tablet PO 12/28/22 09:28 5 mg ONCE ONE Administration Prednisone 60 mg 12/28/22 09:27 12/28/22 09:33 Prednisone 20 Mg Tablet PO 12/28/22 09:28 60 mg ONCE ONE Administration Medical Decision Making Differential Diagnosis Differential Diagnoses: The differential diagnosis associated with the presentation includes see course Independent Interpretation I performed an independent interpretation of an: Plain X-Ray ( X-ray of right shoulder reviewed by myself this is my independent interpretation agreeable read as report no acute findings only chronic changes) Radiology Impression Discussion of test interpretation with radiology: I have reviewed the radiologist's reading. Radiologist Impression: EXAMINATION: XR SHOULDER, RIGHT CLINICAL INFORMATION: Right shoulder pain.? COMPARISON: None available.? TECHNIQUE: Three views of the right shoulder. FINDINGS: Glenohumeral and acromioclavicular alignment is anatomic with normal joint space. No displaced fracture or dislocation. 7 mm ovoid calcification along the proximal humeral shaft.? XR/XR shoulder RT min 2V IMPRESSION: No acute abnormality. Independent Historian Clinical information obtained from an independent historian. History obtained from or confirmed by: Spouse External Record Review External record reviewed: Inpatient record, Office record, Outpatient record, Prior outpatient labs, Prior outpatient radiology, Primary care record and Outside ED record all prior labs/imaging / EKG that are accessible in our system reviewed by myself Prescription Management I considered prescription management with: Pain Medication Social Determinants Patient?s care significantly limited by Social Determinants of Health including: Low income and Other Social Determinant of Health Discharge Plan Discharge Clinical Impression: Muscle strain of right shoulder Patient Disposition: Home, Self-Care Instructions: Muscle Strain (DC), Rotator Cuff Injury Exercises (DC) Prescriptions: New naproxen 500 mg tablet 500 mg PO BID PRN (Reason: pain) Qty: 10 0RF cyclobenzaprine 10 mg tablet 10 mg PO Q8H Qty: 10 0RF oxycodone 5 mg tablet 5 mg PO Q6H PRN (Reason: pain) Qty: 10 0RF Rx Instructions: Partial Fill upon patient request. prednisone 20 mg tablet 40 mg PO DAILY 5 Days Qty: 10 0RF No Action naproxen 500 mg tablet 500 mg PO BID PRN (Reason: pain) Qty: 20 0RF azithromycin 250 mg tablet See Rx Instructions .ROUTE .COMPLEX Qty: 6 0RF Rx Instructions: For 250 mg dose pack: take 500 mg today (day 1), then 250 mg for 4 days (days 2-5) ondansetron 4 mg tablet,disintegrating 4 mg PO Q8H PRN (Reason: nausea and vomiting) Qty: 20 0RF sulfacetamide sodium 10 % drops 1 drp ophthalmic (eye) Q3H Qty: 5 0RF Referrals: [facility] [Provider Group] (if symptoms persist for longer than 2-3 weeks you can follow-up with them) Physician,None [Primary Care Provider] - 1 day (your pcp first for referral to physical therapy or possible additional imaging ) Stand Alone Forms: Work/School Release
== END 2022-12-28 11:11 | disposition home or self-care (01) ==
PROVIDERS: Emergency Provider Emergency Medicine
DX: S46.911A Strain of unspecified muscle, fascia and tendon at shoulder and upper arm level, right arm, initial encounter (principal); X50.9XXA Other and unspecified overexertion or strenuous movements or postures, initial encounter; Y93.9 Activity, unspecified; Y92.9 Unspecified place or not applicable; Y99.9 Unspecified external cause status
CPT/HCPCS: 73030; 99283; 99284

== ENCOUNTER 2023-02-21 01:21 | Emergency (ER) | payer MEDICAID, SELFPAY ==
[2023-02-21 01:23] VITALS: BP 114/71; PULSE 88; RESP 16; TEMP 36.6; O2SAT 96; BMI 29.0
--- NOTE | 2023-02-21 01:47 | ED.EXTPRO ---
HPI - Extremity Problem General Chief complaint: Extremity Problem Stated complaint: Shoulder pain Time Seen by Provider: 02/21/23 01:40 Source: patient and old records reviewed Mode of arrival: ambulatory Limitations: other (not very cooperative, agitated, eyes kept closing during interview at times) History of Present Illness HPI Narrative: 32 yo female seen here 12/28 for R shoulder pain no known injury but worked at [employer] she has left the job had xray then without fracture seen. Coming in tonight as she cannot sleep, eat or work due to pain. She became more agitated during the interview when I told her another xray would not help and we didn't have MRI for something of this nature at 2am. I did explain she could see her PCP for MRI and PT prior to her ortho appointment on 03/13 but she stated I dont think they knew shit. I told her if this was a ligamentous injury she would need MRI to look at the structures and not xray. She became very upset and frustrated and did not want to do physical exam. She then stated to her visitor why did I come here? Complaint: extremity pain and joint pain Onset (ago): month(s) (since December) Pain Consistency: constant Location: right and upper extremity (shoulder) Quality: constant Radiation: none Relieving factors: nothing Exacerbating factors: range of motion Associated symptoms: other (causing her lose sleep and not want to eat) Context: other (repetitive movements at her prior job) Related Data Previous Rx's Medication Instructions Recorded naproxen 500 mg tablet 500 mg PO BID PRN pain #20 tabs 06/20/21 ondansetron 4 mg disintegrating 4 mg PO Q8H PRN nausea and 04/01/22 tablet vomiting #20 tabs sulfacetamide sodium 10 % eye drops 1 drp ophthalmic (eye) Q3H #5 mL 05/06/22 azithromycin 250 mg tablet See Rx Instructions PO .COMPLEX #6 06/12/22 tabs cyclobenzaprine 10 mg tablet 10 mg PO Q8H #10 tabs 12/28/22 naproxen 500 mg tablet 500 mg PO BID PRN pain #10 tabs 12/28/22 oxycodone 5 mg tablet 5 mg PO Q6H PRN pain #10 tabs 12/28/22 prednisone 20 mg tablet 40 mg (2 x 20 mg) PO DAILY 12/28/22 inflammation 5 days #10 tabs Allergies Allergy/AdvReac Type Severity Reaction Status Date / Time amoxicillin Allergy Anaphylaxis Verified 05/17/22 11:51 Penicillins Allergy Difficulty Verified 05/17/22 11:52 Swallowing Review of Systems Review of Systems: Constitutional : No Fever, No Chills Cardiovascular : No Chest Pain, No SOB Respiratory : No Cough, No Dyspnea Gastrointestinal : No Nausea, No Vomiting, No Diarrhea, No abdominal Pain Genitourinary : No Dysuria, No Hematuria Musculoskeletal : positive joint pain, No Myalgias, No Joint Swelling Skin : No Skin lacerations, No rash Neuro : No Weakness, No Numbness All other systems reviewed and are negative PMFSH Past Medical History Attestation statement: The following information was validated with the patient. Medical History delivery delivered Surgical History H/O hand surgery Social History Social History Alcohol intake: never Substance Use Type: Marijuana Advance Directives: No Advance Directives Information Provided: No Physical Exam Vital Signs: Vital Signs: Last Vital Signs Temp 97.8 F 02/21/23 01:23 Pulse 88 02/21/23 01:23 Resp 16 02/21/23 01:23 BP 114/71 02/21/23 01:23 Pulse Ox 96 02/21/23 01:23 O2 Del Method Room Air 02/21/23 01:23 BMI result Body Mass Index 29.0 Appearance: Eyes closing, smelled strong of THC. Oriented X3. No acute distress. Eyes: Pupils equal, round and reactive to light. Sclera injected. ENT: Pharynx normal. Neck: Normal inspection. Neck supple. CVS: Pulses normal. Respiratory: No respiratory distress. Abdomen: atraumatic Skin: Skin warm and dry. Normal skin color. Extremities: No lower extremity edema. Will not perform any rotator cuff tests can raise arm when asked to I'm not doing that shit I told her ortho would ask her to perform these tests as well and she states they will get the same answer. Neuro: Oriented X 3. No motor deficit. No sensory deficit. Medical Decision Making Medical Decision Making MDM Narrative: 32 yo female with R shoulder pain since December she has pulses intact, refuses to do any rotator cuff testing - she has ortho appointment she is very upset with any exam or questions. She will need MRI and PT by her PCP which I explained - the patient walked out prior to dc instructions. Differential Diagnosis Differential Diagnoses: The differential diagnosis associated with the presentation includes shoulder strain, rotator cuff injury External Record Review External record reviewed: Inpatient record Prescription Management I considered prescription management with: Other (I considered flexeril and lidocaine patch but the patient eloped and was rude during the visit) Discharge Plan Discharge Clinical Impression: Right shoulder pain Qualifiers: Chronicity: unspecified Qualified Code(s): M25.511 - Pain in right shoulder Patient Disposition: Elopement Prescriptions: No Action naproxen 500 mg tablet 500 mg PO BID PRN (Reason: pain) Qty: 20 0RF azithromycin 250 mg tablet See Rx Instructions .ROUTE .COMPLEX Qty: 6 0RF Rx Instructions: For 250 mg dose pack: take 500 mg today (day 1), then 250 mg for 4 days (days 2-5) ondansetron 4 mg tablet,disintegrating 4 mg PO Q8H PRN (Reason: nausea and vomiting) Qty: 20 0RF sulfacetamide sodium 10 % drops 1 drp ophthalmic (eye) Q3H Qty: 5 0RF naproxen 500 mg tablet 500 mg PO BID PRN (Reason: pain) Qty: 10 0RF cyclobenzaprine 10 mg tablet 10 mg PO Q8H Qty: 10 0RF oxycodone 5 mg tablet 5 mg PO Q6H PRN (Reason: pain) Qty: 10 0RF Rx Instructions: Partial Fill upon patient request. prednisone 20 mg tablet 40 mg PO DAILY 5 Days Qty: 10 0RF
== END 2023-02-21 05:55 | disposition left against medical advice (07) ==
PROVIDERS: Emergency Provider Emergency Medicine
DX: M25.511 Pain in right shoulder (principal)
CPT/HCPCS: 99281

== ENCOUNTER 2023-06-23 18:57 | Emergency (ER) | payer MEDICAID, SELFPAY ==
--- NOTE | 2023-06-23 | ECG_ITS ---
Test Reason : ? seizure Blood Pressure : / mmHG Vent. Rate : 089 BPM Atrial Rate : 089 BPM P-R Int : 158 ms QRS Dur : 080 ms QT Int : 338 ms P-R-T Axes : 070 -84 056 degrees QTc Int : 411 ms Normal sinus rhythm Left axis deviation Anteroseptal infarct , age undetermined Abnormal ECG No previous ECGs available Referred By: Generic ED Physician Electronically Signed By:KHOI GILBERT MD
[2023-06-23 19:03] VITALS: BP 180/87; PULSE 104; RESP 20; TEMP 36.6; O2SAT 99; BMI 29.1
--- NOTE | 2023-06-23 19:30 | MHC.EDTECH ---
Patient came in to triage area,EKG taken and signed by provider, labs obtained and sen to lab.
[2023-06-23 19:42] LABS: MANUAL DIFF FLAG NO
[2023-06-23 19:43] LABS: Basophils Percent Auto 0.2 % (0-2); Eosinophils Absolute Auto 0.2 X10*3/uL (0.0-0.4); Eosinophils Percent Auto 1.9 % (0-4); Hematocrit 43.4 % (37.0-47.0); Hemoglobin 14.9 g/dl (12.0-16.0); Imm Gran Abs Auto 0.02 X10*3/uL (0.00-0.03); Imm Gran Pct Auto 0.2 % (0.0-0.4); Lymphocytes Absolute Auto 2.9 X10*3/uL (1.2-4.9); Lymphocytes Percent Auto 34.2 % (20-40); Mean Corpuscular HGB Conc 34.3 g/dl (31.0-35.0); Mean Corpuscular Hemoglobin 31.1 pg (27.0-33.0); Mean Corpuscular Volume 90.6 fL (80.0-98.0); Mean Platelet Volume 9.2 fL (9.4-12.3); Monocytes Absolute Auto 0.5 X10*3/uL (0.1-1.2); Monocytes Percent Auto 5.5 % (2-11); Neutrophils Absolute Auto 4.9 x10*3/uL (2.0-8.3); Platelet Count 237 X10*3/uL (160-400); Red Blood Count 4.79 X10*6/uL (4.20-5.50); Red Cell Distribution Width 11.9 % (11.0-16.0); White Blood Count 8.4 X10*3/uL (4.8-10.8)
[2023-06-23 19:56] LABS: Anion Gap 12 (12-20); Blood Urea Nitrogen 13 mg/dL (9-16); Calcium 9.7 mg/dL (8.4-10.2); Carbon Dioxide 25 mmol/L (22-29); Chloride 106 mmol/L (96-108); Creatinine Clr Calc Pharmacy 94.4; Estimated Glomerular Filt Rate > 60; Glucose Random 88 mg/dL (60-115); Potassium 3.9 mmol/L (3.3-5.1); Sodium 139 mmol/L (135-145)
== END 2023-06-24 00:36 | disposition left against medical advice (07) ==
PROVIDERS: Emergency Provider Emergency Medicine
DX: R56.9 Unspecified convulsions (principal); Z91.148 Patient's other noncompliance with medication regimen for other reason
CPT/HCPCS: 36415; 80048; 85025; 93005; 99283

== ENCOUNTER → 2023-06-23 19:29 | Outpatient (BNV) | payer MEDICAID, SELFPAY | PROVIDERS: Emergency Provider Emergency Medicine; Visit Provider Internal Medicine Cardiovascular Disease | DX: R94.31 Abnormal electrocardiogram [ECG] [EKG] (principal) | CPT/HCPCS: 93010 ==

== ENCOUNTER 2023-07-24 15:22 | Emergency (ER) | payer MEDICAID, SELFPAY ==
[2023-07-24 15:54] VITALS: BP 117/70; PULSE 82; RESP 18; TEMP 36.7; O2SAT 98; BMI 29.3
== END 2023-07-24 20:09 | disposition left against medical advice (07) ==
PROVIDERS: Emergency Provider Emergency Medicine
DX: H57.13 Ocular pain, bilateral (principal)
CPT/HCPCS: 99281

== ENCOUNTER 2023-07-30 12:35 | Emergency (ER) | payer MEDICAID, SELFPAY ==
[2023-07-30 13:44] VITALS: BP 117/78; PULSE 87; RESP 16; TEMP 36.9; O2SAT 100; BMI 28.3
--- NOTE | 2023-07-30 13:44 | ED.EYEPROB ---
HPI - Eye Problem General Chief complaint: Eye Problems Stated complaint: R eye scratch from contacts Time Seen by Provider: 07/30/23 17:39 Source: patient Mode of arrival: ambulatory History of Present Illness HPI Narrative: 32-year-old female with right eye discomfort since yesterday, denies any trauma, wears contacts and states that she has had corneal abrasions previously but she has also had a recent change in contacts. Related Data Previous Rx's Medication Instructions Recorded naproxen 500 mg tablet 500 mg PO BID PRN pain #20 tabs 06/20/21 ondansetron 4 mg disintegrating 4 mg PO Q8H PRN nausea and 04/01/22 tablet vomiting #20 tabs sulfacetamide sodium 10 % eye drops 1 drp ophthalmic (eye) Q3H #5 mL 05/06/22 azithromycin 250 mg tablet See Rx Instructions PO .COMPLEX #6 06/12/22 tabs cyclobenzaprine 10 mg tablet 10 mg PO Q8H #10 tabs 12/28/22 naproxen 500 mg tablet 500 mg PO BID PRN pain #10 tabs 12/28/22 oxycodone 5 mg tablet 5 mg PO Q6H PRN pain #10 tabs 12/28/22 prednisone 20 mg tablet 40 mg (2 x 20 mg) PO DAILY 12/28/22 inflammation 5 days #10 tabs Allergies Allergy/AdvReac Type Severity Reaction Status Date / Time amoxicillin Allergy Anaphylaxis Verified 07/24/23 15:57 Penicillins Allergy Difficulty Verified 07/24/23 15:57 Swallowing Review of Systems Review of Systems: Pertinent positives and negatives as stated in HPI [facility] Past Medical History Source: nursing notes reviewed Medical History delivery delivered Surgical History H/O hand surgery Social History Social History Alcohol intake: never Substance Use Type: Marijuana Advance Directives: No Advance Directives Information Provided: No Physical Exam Vital Signs: Vital Signs: Last Vital Signs Temp 98.4 F 07/30/23 13:44 Pulse 87 07/30/23 13:44 Resp 16 07/30/23 13:44 BP 117/78 07/30/23 13:44 Pulse Ox 100 07/30/23 13:44 O2 Del Method Room Air 07/30/23 13:44 BMI result Body Mass Index 28.3 VITAL SIGNS: Reviewed. GENERAL: Well developed, well nourished, in no acute distress. HEAD: Normocephalic/atraumatic, EYES: PERRLA, EOMI, no conjunctival injection, fluorescein exam without evidence of abrasion or laceration OROPHARYNX: no oral lesions noted, posterior pharynx clear NECK: Supple, no adenopathy LUNGS: Normal breath sounds. No adventitious sounds or accessory muscle use. SpO2<100> CARDIOVASCULAR: Regular rate and rhythm without noted murmurs ABDOMEN: Soft, non-tender, non-distended with bowel sounds. NEUROLOGIC: Alert and oriented x 4. Strength and sensation to light touch were grossly intact x 4. Course Course Course Narrative: RME: 32 year-old F w/no sig PMHx presenting to the ED c/o right eye cuts with burning, tearing, itching x 4 days w/right sided head pressure. Admits to wearing contacts, is still wearing contacts now. +blurry vision to R eye R eye teary, had patient remove contacts in triage [facility], tetricaine & Fluorescein ordered Full HPI, ROS and PE to be performed by primary ED provider. Medications Administered Discontinued Medications Generic Name Dose Route Start Last Admin Trade Name Kevinq PRN Reason Stop Dose Admin Fluorescein Sodium 1 strip 07/30/23 13:45 07/30/23 18:15 Fluorescein Sodium Strip EYE-RIGHT 07/30/23 13:46 1 strip ONCE ONE Administration Tetracaine HCl 1 drop 07/30/23 13:45 07/30/23 18:15 Tetracaine Hcl/Pf 0.5% Oph Thania 4 Ml Drops EYE-RIGHT 07/30/23 13:46 1 drop ONCE ONE Administration Medical Decision Making Medical Decision Making MDM Narrative: Apply tetracaine, examination under was lamp with fluorescein negative for corneal ulceration or abrasion. Reassured patient and provided her with eyedrops for irritated right eye. Differential Diagnosis Differential Diagnoses: The differential diagnosis associated with the presentation includes Please see the discussion above Admission/Observation Consideration of admission/observation: Escalation of care including admission/observation considered Please see the discussion above Discharge Plan Discharge Clinical Impression: Irritation of right eye Patient Disposition: Home, Self-Care Instructions: Eye Pain (ED) Additional Instructions: Recommend Refresh Gel drops by [facility] Available at [facility] Please follow-up with your eye doctor tomorrow. Prescriptions: No Action naproxen 500 mg tablet 500 mg PO BID PRN (Reason: pain) Qty: 20 0RF azithromycin 250 mg tablet See Rx Instructions .ROUTE .COMPLEX Qty: 6 0RF Rx Instructions: For 250 mg dose pack: take 500 mg today (day 1), then 250 mg for 4 days (days 2-5) ondansetron 4 mg tablet,disintegrating 4 mg PO Q8H PRN (Reason: nausea and vomiting) Qty: 20 0RF sulfacetamide sodium 10 % drops 1 drp ophthalmic (eye) Q3H Qty: 5 0RF naproxen 500 mg tablet 500 mg PO BID PRN (Reason: pain) Qty: 10 0RF cyclobenzaprine 10 mg tablet 10 mg PO Q8H Qty: 10 0RF oxycodone 5 mg tablet 5 mg PO Q6H PRN (Reason: pain) Qty: 10 0RF Rx Instructions: Partial Fill upon patient request. prednisone 20 mg tablet 40 mg PO DAILY 5 Days Qty: 10 0RF
[2023-07-30] MEDS: Tetracaine HCl/PF 0.5% Oph Sol 4 ML DROPS 1 DROP EYE-RIGHT (18:15)
[2023-07-30] MEDS: Fluorescein Sodium STRIP 1 STRIP EYE-RIGHT (18:15)
== END 2023-07-30 18:55 | disposition home or self-care (01) ==
PROVIDERS: Emergency Provider Student in an Organized Health Care Education/Training Program
DX: H57.11 Ocular pain, right eye (principal); Z79.899 Other long term (current) drug therapy
CPT/HCPCS: 99281; 99283

== ENCOUNTER 2023-08-24 13:43 | Outpatient (REF) | payer MEDICAID, SELFPAY ==
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
== END 2023-08-24 13:44 | disposition home or self-care (01) ==
LOC: HO.NEURO 13:43
PROVIDERS: Visit Provider Nurse Practitioner Family
DX: G56.03 Carpal tunnel syndrome, bilateral upper limbs (principal)
CPT/HCPCS: 95886; 95912

== ENCOUNTER → 2023-08-24 13:47 | Outpatient (BNV) | payer MEDICAID, SELFPAY | PROVIDERS: Visit Provider Physical Medicine & Rehabilitation | DX: G56.03 Carpal tunnel syndrome, bilateral upper limbs (principal); G56.13 Other lesions of median nerve, bilateral upper limbs | CPT/HCPCS: 95886; 95912 ==

== ENCOUNTER 2023-10-19 07:16 | Emergency (ER) | payer MEDICAID, SELFPAY ==
[2023-10-19 07:18] VITALS: BP 133/89; PULSE 87; RESP 16; TEMP 36.9; O2SAT 98; BMI 29.1
--- NOTE | 2023-10-19 07:24 | ED.GENADULT ---
HPI - General Adult General Chief complaint: Eye Problems Stated complaint: L eye swollen in pain Time Seen by Provider: 10/19/23 07:23 Source: patient Mode of arrival: ambulatory Limitations: no limitations History of Present Illness HPI narrative: Patient is a 32 year old assigned female at with a history of contact lens use presenting to the emergency department today with left eye irritation. Patient states that she woke up this morning with left eye pain / irritation. Patient states that there hasn't been any drainage from the left eye. Patient states that she does wear contacts. Patient denies any dizziness, lightheadedness, abdominal pain, nausea, vomiting, fever, chills, blurry vision, double vision, loss of vision, chest pain, difficulty breathing, shortness of breath, back pain, night sweats, pain with urination, increased urinary frequency, increased urinary urgency, blood in her urine or stool, syncope or a near syncopal episode, recent trauma or falls, bowel incontinence, bladder incontinence, bowel retention, bladder retention, or any other complaints at this time. Onset (ago): hour(s) Location: left (eye) Radiation: non-radiation Severity: mild Severity scale (1-10): 4 Quality: aching and dull Pain Consistency: constant Relieving factors: none Exacerbating factors: none Associated symptoms: denies other symptoms Treatments prior to arrival: none Related Data Previous Rx's ?Medication ?Instructions ?Recorded naproxen 500 mg tablet 500 mg PO BID PRN pain #20 tabs 06/20/21 ondansetron 4 mg disintegrating 4 mg PO Q8H PRN nausea and 04/01/22 tablet vomiting #20 tabs sulfacetamide sodium 10 % eye drops 1 drp ophthalmic (eye) Q3H #5 mL 05/06/22 azithromycin 250 mg tablet See Rx Instructions PO .COMPLEX #6 06/12/22 tabs cyclobenzaprine 10 mg tablet 10 mg PO Q8H #10 tabs 12/28/22 naproxen 500 mg tablet 500 mg PO BID PRN pain #10 tabs 12/28/22 oxycodone 5 mg tablet 5 mg PO Q6H PRN pain #10 tabs 12/28/22 prednisone 20 mg tablet 40 mg (2 x 20 mg) PO DAILY 12/28/22 inflammation 5 days #10 tabs ciprofloxacin HCl 0.3 % eye drops See Rx Instructions ophthalmic 10/19/23 (eye) .COMPLEX #5 mL Allergies Allergy/AdvReac Type Severity Reaction Status Date / Time amoxicillin Allergy Anaphylaxis Verified 10/19/23 07:20 Penicillins Allergy Difficulty Verified 10/19/23 07:20 Swallowing Review of Systems Constitutional: Constitutional: Reports no additional constitutional complaints, Denies chills, Denies fever(s) and Denies night sweats Eyes: Eyes: Reports no additional eye complaints, Denies blurry vision, Denies change in vision, Denies diplopia, Denies eye discharge, Reports irritation (left eye), Denies loss of vision and Reports eye pain (left eye) ENT: Denies dizziness Cardiovascular: Cardiovascular: Reports no additional cardiovascular complaints, Denies chest pain, Denies lightheadedness, Denies Loss of Consciousness and Denies dyspnea Respiratory: Respiratory: Reports no additional respiratory complaints and Denies dyspnea Gastrointestinal: Gastrointestinal: Reports no additional gastrointestinal complaints, Denies abdominal pain, Denies melena, Denies hematochezia, Denies change in bowel habits and Denies change in stool character Genitourinary: Genitourinary: Denies hematuria, Denies urinary frequency, Denies dysuria, Denies urinary incontinence, Denies urinary hesitancy and Denies urinary urgency Musculoskeletal: Musculoskeletal: Reports no additional musculoskeletal complaints, Denies numbness and Denies tingling Neurologic: Denies dizziness, Denies loss of vision, Denies numbness and Denies tingling Psychiatric: Psychiatric: Reports no additional psychiatric complaints Endocrine: Endocrine: Reports no additional endocrine complaints Hematologic/Lymphatic: Hematologic/Lymphatic: Reports no additional hematologic/lymphatic complaints Allergic/Immunologic: Allergic/Immunologic: Reports no additional allergic/immunologic complaints [facility] Past Medical History Attestation statement: The following information was validated with the patient. Source: old records reviewed and nursing notes reviewed Medical History delivery delivered Surgical History H/O hand surgery Social History Social History Alcohol intake: never Substance Use Type: Marijuana Advance Directives: No Advance Directives Information Provided: No Physical Exam ED Vital Signs: Vital Signs - 24 hr 10/19/23 07:18 10/19/23 07:51 Temperature 98.5 F 98.5 F Pulse Rate 87 87 Respiratory Rate 16 16 Blood Pressure 133/89 133/89 Pulse Oximetry 98 98 Oxygen Delivery Method Room Air Room Air BMI result Body Mass Index 29.1 Const General: cooperative, no acute distress, alert and awake Nutritional Appearance: well nourished Orientation/consciousness: patient oriented x3 Limitations: no limitations HENMT Head: Yes normal to inspection and Yes atraumatic Ears: hearing grossly normal bilaterally and external ears normal General nose exam: Normal external nose present, no nasal discharge noted and no epistaxis Face and sinus: Yes normal facial exam, No abrasion and No laceration Mouth: Normal oral and palatal mucosa present, no drooling and no muffled voice Eyes Periorbital: periorbital findings normal Eyelids: Yes eyelids normal Conjunctivae: conjunctivae normal Sclerae: sclerae normal Corneas: corneas abnormal on the left abrasion punctate Pupils: Equal, round and reactive pupils present EOM: EOMs intact bilaterally Neck Neck: Yes normal visual inspection, Yes full ROM and Yes no lymphadenopathy Chest Chest palpation & inspection: normal inspection of the chest Resp Effort & Inspection: normal respiratory effort and able to speak in complete sentences GI Inspection: Yes normal to inspection Neuro General: patient oriented x3 and moves all extremities Cranial nerves: Yes Equal, round and reactive pupils present Cognition (Neuro): normal cognition Motor exam (neuro): 5/5 motor strength present throughout Sensory Exam: Normal double simultaneous stimulation for sensation Coordination: [id number] test normal Extrem General: Yes normal to inspection, Yes full ROM and Yes capillary refill normal Psych Appearance: grossly normal Mental Status: mental status grossly normal Affect: normal affect Attitude: cooperative Thought process: Normal thought process present Thought content: Normal thought content present Insight: Good insight present (Psych) Medical Decision Making Medical Decision Making MDM Narrative: Patient is a 32 year old assigned female at with a history of contact lens use presenting to the emergency department today with left eye pain. Patient's physical exam showed a punctate left corneal abrasion but was otherwise unremarkable. Patient's EOMs were intact bilaterally. I explained my physical exam findings to the patient. I answered all questions asked by the patient. I stressed the importance of the patient disposing her current pair of contacts and the contact case. I stressed the importance of the patient taking her medication as prescribed. I stressed the importance of the patient following up with her primary care provider and an destination specialist. I stressed the importance of the patient returning to the emergency department immediately if her symptoms were to worsen or if she were to develop any dizziness, shortness of breath, difficulty breathing, chest pain, blurry vision, loss of vision, nausea, vomiting, abdominal pain, fever, chills, back pain, or any other complaints. Patient verbalized agreement and understanding with this treatment plan and discharge. Differential Diagnosis Differential Diagnoses: The differential diagnosis associated with the presentation includes L corneal abrasion Conjunctivitis Eye irritation Uveitis Admission/Observation Consideration of admission/observation: Escalation of care including admission/observation considered Patient would have been admitted to the hospital had her clinical presentation warranted hospital admission. Prescription Management I considered prescription management with: Antibiotic (patient prescribed an antibiotic for L corneal abrasion) Discharge Plan Discharge Clinical Impression: Corneal abrasion Patient Disposition: Home, Self-Care Instructions: Corneal Abrasion (DC) Additional Instructions: Follow up with your primary care provider and an destination specialist. Return to the emergency department immediately if your symptoms worsen or if you develop any dizziness, shortness of breath, difficulty breathing, chest pain, blurry vision, loss of vision, nausea, vomiting, abdominal pain, fever, chills, back pain, or any other complaints. Prescriptions: New ciprofloxacin HCl 0.3 % drops See Rx Instructions .ROUTE .COMPLEX Qty: 5 0RF Rx Instructions: put 2 drops in L eye every 2hr up to 8 times/day x2days; then 4 times/day x5days No Action naproxen 500 mg tablet 500 mg PO BID PRN (Reason: pain) Qty: 20 0RF azithromycin 250 mg tablet See Rx Instructions .ROUTE .COMPLEX Qty: 6 0RF Rx Instructions: For 250 mg dose pack: take 500 mg today (day 1), then 250 mg for 4 days (days 2-5) ondansetron 4 mg tablet,disintegrating 4 mg PO Q8H PRN (Reason: nausea and vomiting) Qty: 20 0RF sulfacetamide sodium 10 % drops 1 drp ophthalmic (eye) Q3H Qty: 5 0RF naproxen 500 mg tablet 500 mg PO BID PRN (Reason: pain) Qty: 10 0RF cyclobenzaprine 10 mg tablet 10 mg PO Q8H Qty: 10 0RF oxycodone 5 mg tablet 5 mg PO Q6H PRN (Reason: pain) Qty: 10 0RF Rx Instructions: Partial Fill upon patient request. prednisone 20 mg tablet 40 mg PO DAILY 5 Days Qty: 10 0RF Referrals: [facility] [place] [facility]] (Call to establish and follow up with a primary care provider. If you already have a primary care provider, please follow up with them.) [facility]] [facility] [Provider Group] [facility] Oliveira [Physician] - (Call to establish and follow up with an destination specialist.) Stand Alone Forms: Work/School Release Interventions: ED Discharge Assessment Last Done: 10/19/23 07:51 Discharge Date/Time: 10/19/23 07:53 Print Language: Upper Sorbian
[2023-10-19 07:51] VITALS: BP 133/89; PULSE 87; RESP 16; TEMP 36.9; O2SAT 98
== END 2023-10-19 07:53 | disposition home or self-care (01) ==
PROVIDERS: Emergency Provider Student in an Organized Health Care Education/Training Program
DX: S05.02XA Injury of conjunctiva and corneal abrasion without foreign body, left eye, initial encounter (principal); X58.XXXA Exposure to other specified factors, initial encounter; Y93.9 Activity, unspecified; Y92.9 Unspecified place or not applicable; Y99.8 Other external cause status
CPT/HCPCS: 99282; 99283

== ENCOUNTER 2024-02-26 15:59 | Outpatient (AMB) | payer MEDICAID, SELFPAY ==
[2024-02-26 16:04] VITALS: BP 136/100; PULSE 74; TEMP 36.7; O2SAT 99; BMI 29.1
--- NOTE | 2024-02-26 16:04 | AM.OFFWIN_ITS ---
Intake Vital Signs 02/26/24 16:04 Height 5 ft 5 in Weight 175 lb BMI 29.1 BP 136/100 H Blood Pressure Location Rt brachial Position Sitting Pulse 74 Pulse Source Pulse Oximeter Temp 98.0 F Temp Source Oral Pulse Oximetry (%) 99 Oxygen Delivery Method Room Air Intake Visit Reasons: EP chest tightness, palpitations Intake Note: pt c/o chest pain/tightness. Palpitations. Started this morning Patient Tobacco Use Status: Current everyday Tobacco user Allergies amoxicillin Allergy (Verified 02/26/24 16:08) Anaphylaxis Penicillins Allergy (Verified 02/26/24 16:08) Difficulty Swallowing Do you need a note to return to daycare/school/sports/work: No HPI HPI Comments History of Present Illness Details Patient is a 33-year-old female complaining chest pain and tightness, she states it is worse with movement, she states it hurts when she drives or when she tries to lift anything. She states she has a [employer] for her job but has not done any extraordinary lifting or moving or started any new workout regimens or anything that requires a lot of physical strength in the last few days. She states she has reflux which is worsened when she eats red sauce and she did have some red sauce yesterday so she thought maybe the uncomfortableness she was feeling with just reflux, that his symptoms started this morning so she just went about her day. She denies any nausea or vomiting, sweating, pain in her neck or her jaw or her shoulders or her arms or her back. She does state she has right shoulder and neck pain at baseline and that is not any different today. She states she feels like she has some palpitations and that is mostly secondary to the pain she is feeling. She states she has a very high pain tolerance as she has over 80 tattoos. [facility] Medical History delivery delivered Surgical History H/O hand surgery Social History Alcohol intake: never Patient Tobacco Use Status: Current everyday Tobacco user Substance Use Type: Marijuana Review of Systems Const All systems reviewed & are unremarkable except as noted in HPI and below Physical Exam Vital Signs: Last Vital Signs Temp 98.0 F 02/26/24 16:04 Pulse 74 02/26/24 16:04 BP 136/100 H 02/26/24 16:04 Pulse Ox 99 02/26/24 16:04 Oxygen Delivery Method Room Air 02/26/24 16:04 BMI result Body Mass Index 29.1 Const General: cooperative, healthy appearing, comfortable, well developed and in distress (in pain) mild Orientation/consciousness: patient oriented x3 Limitations: no limitations HEENT Head: Yes normal to inspection Ears: hearing grossly normal bilaterally General nose exam: Normal external nose present Face and sinus: Yes normal facial exam Eyes General: appearance normal, both eyes and all related structures Neck Neck: Yes normal visual inspection and Yes full ROM Chest Other: Pain to her bilateral upper chest when I palpate, the pain is clearly reproducible. Resp Effort & Inspection: normal respiratory effort and able to speak in complete sentences Auscultation: clear to auscultation bilaterally Cardio Rate: regular rate Rhythm: regular rhythm Heart sounds: normal S1 and S2 GI Inspection: Yes normal to inspection Palpation (GI): Soft to palpation and nontender Skin General skin exam: no rashes or lesions noted Neuro General: patient oriented x3 Extrem General: Yes normal to inspection Office Procedures EKG Details: Normal sinus rhythm with a possible anteroseptal infarct however this is also on her EKG from June of 2023, no ST or T-wave changes [id number], Complete Assessment & Plan Assessment & Plan (1) Chest pain: Code(s): R07.9 - Chest pain, unspecified Qualifiers: Chest pain type: other chest pain Qualified Code(s): R07.89 - Other chest pain Plan: Likely musculoskeletal and EKG was normal sinus rhythm with possible anteroseptal infarct however this did show up on her 06/2023 EKG. Would prefer patient go to the emergency room via EMS for troponins and further workup as there is no reason for her to have musculoskeletal chest pain that is so painful. Discussed risks and benefits of her leaving against medical advice and not letting us call an ambulance for her, she agreed to absorb all the risks of leaving AMA. Patient would like to leave AMA, so she signed AMA form. Plan see above Medications: Discontinued naproxen Discontinued Reason: Patient no longer taking 500 mg PO BID PRN 20 tabs 0RF pain sulfacetamide sodium 10% Discontinued Reason: Patient no longer taking 1 drp ophthalmic (eye) Q3H 5 mL 0RF ondansetron Discontinued Reason: Patient no longer taking 4 mg PO Q8H PRN 20 tabs 0RF nausea and vomiting azithromycin Discontinued Reason: Patient no longer taking For 250 mg dose pack: take 500 mg today (day 1), then 250 mg for 4 days (days 2-5) 6 tabs 0RF cyclobenzaprine Discontinued Reason: Patient no longer taking 10 mg PO Q8H 10 tabs 0RF oxycodone Partial Fill upon patient request. Discontinued Reason: Patient no longer taking 5 mg PO Q6H PRN 10 tabs 0RF pain prednisone Discontinued Reason: Patient no longer taking 40 mg (2 x 20 mg) PO DAILY 5 days 10 tabs 0RF inflammation ciprofloxacin HCl 0.3% Discontinued Reason: Patient no longer taking put 2 drops in L eye every 2hr up to 8 times/day x2days; then 4 times/day x5days 5 mL 0RF Coding Level of Care Code New Pt Level 5 (30019) Diagnoses Other chest pain R07.89 Chest pain type: other chest pain CPT Codes EKG - CPT: 26492-[id number], Complete ([id number])
== END 2024-02-26 16:52 | disposition home or self-care (01) ==
PROVIDERS: Visit Provider Physician Assistant
DX: R07.89 Other chest pain (principal)

== ENCOUNTER → 2024-02-26 15:59 | Outpatient (BNVA) | payer MEDICAID, SELFPAY | DX: R07.89 Other chest pain (principal) | CPT/HCPCS: 93005; 99202 ==

== ENCOUNTER 2024-02-26 16:54 | Emergency (ER) | payer MEDICAID, SELFPAY ==
--- NOTE | ~2024-02-26 | XR_ITS ---
EXAMINATION: XR CHEST CLINICAL INFORMATION: Chest pain COMPARISON: None available. TECHNIQUE: 2 views of the chest were obtained. FINDINGS: The cardiomediastinal silhouette is within normal limits. The lungs are well expanded. There is no focal consolidation, edema, or effusion. No pneumothorax. No acute osseous abnormality. XR/XR chest 2V IMPRESSION: No acute pulmonary process. Electronically signed by: Rupert Estrada MD 02/26/2024 06:03 PM EDT
--- NOTE | 2024-02-26 16:55 | ECG_ITS ---
Test Reason : CHEST PAIN Blood Pressure : / mmHG Vent. Rate : 069 BPM Atrial Rate : 069 BPM P-R Int : 166 ms QRS Dur : 076 ms QT Int : 376 ms P-R-T Axes : 064 -51 038 degrees QTc Int : 402 ms Normal sinus rhythm Left axis deviation Septal infarct (cited on or before 23-JUN-2023) Abnormal ECG When compared with ECG of 23-JUN-2023 19:29, No significant change was found Referred By: Tania Mena Electronically Signed By:GABY FAY
[2024-02-26 18:06] LABS: MANUAL DIFF FLAG NO
[2024-02-26 18:12] LABS: Appearance Urine Clear; Color Urine Yellow; Glucose Urine UA Negative (Negative); Leukocyte Esterase Urine Negative (Negative); Nitrite Urine Negative (Negative); PH 7.5 (5.0-9.0); Urine Blood Negative (Negative); Urine Ketones Negative (Negative); Urine Protein Negative (Neg-Trace)
[2024-02-26 18:23] LABS: Basophils Percent Auto 0.3 % (0-2); Eosinophils Absolute Auto 0.1 X10*3/uL (0.0-0.4); Eosinophils Percent Auto 1.2 % (0-4); Hematocrit 42.8 % (37.0-47.0); Hemoglobin 15.2 g/dl (12.0-16.0); Imm Gran Abs Auto 0.03 X10*3/uL (0.00-0.03); Imm Gran Pct Auto 0.3 % (0.0-0.4); Lymphocytes Percent Auto 34.2 % (20-40); Mean Corpuscular HGB Conc 35.5 g/dl (31.0-35.0); Mean Corpuscular Hemoglobin 32.1 pg (27.0-33.0); Mean Corpuscular Volume 90.5 fL (80.0-98.0); Mean Platelet Volume 9.4 fL (9.4-12.3); Monocytes Absolute Auto 0.4 X10*3/uL (0.1-1.2); Monocytes Percent Auto 4.2 % (2-11); Neutrophils Absolute Auto 5.3 x10*3/uL (2.0-8.3); Neutrophils Percent Auto 59.8 % (45-73); Platelet Count 213 X10*3/uL (160-400); Red Blood Count 4.73 X10*6/uL (4.20-5.50); Red Cell Distribution Width 11.9 % (11.0-16.0); White Blood Count 8.8 X10*3/uL (4.8-10.8)
--- NOTE | 2024-02-26 18:23 | ED_ITS ---
HPI - Chest Pain General Chief Complaint: Chest Pain Stated Complaint: Chest pain Time Seen by Provider: 02/26/24 19:25 Source: patient Mode of arrival: ambulatory Limitations: no limitations History of Present Illness ED Provider: Dr. Perlita Harrington HPI narrative: Patient comes to the emergency room complaining of palpitations that chest pressure. Patient states that she has had a very stressful morning with her children at home, also received bad news. Patient states that she noted that when she received the phone call with bad news she started having recurrent symptoms. At this time, patient still feels anxious, no chest pain or shortness of breath. Related Data Previous Rx's ?Medication ?Instructions ?Recorded naproxen 500 mg tablet 500 mg PO BID PRN pain #10 tabs 12/28/22 hydroxyzine HCl 25 mg tablet 25 mg PO TID PRN nausea and 02/26/24 vomiting #14 tabs Allergies Allergy/AdvReac Type Severity Reaction Status Date / Time amoxicillin Allergy Anaphylaxis Verified 02/26/24 18:30 Penicillins Allergy Difficulty Verified 02/26/24 18:30 Swallowing Review of Systems 2 Review of Systems: Constitutional : No Weight loss, No Fever, No Chills, No Night Sweats, No Fatigue, No Malaise ENT/Mouth : No Hearing loss, No Ear Pain, No Nasal Congestion, No Sinus Pain, No Hoarseness, No sore throat, No Rhinorrhea, No Swallowing Difficulty Eyes: No Eye Pain, No Swelling, No Redness, No Foreign Body, No Discharge, No Vision Changes Cardiovascular : complaining of chest pressure and palpitations without Chest Pain, No SOB, No Dyspnea on Exertion, No Orthopnea, No Edema Respiratory : No Cough, No Sputum, No Wheezing, No Smoke Exposure, No Dyspnea Gastrointestinal : No Nausea, No Vomiting, No Diarrhea, No Constipation, No abdominal Pain, No Hematochezia, No Melena Genitourinary : no irregular bleeding, No Dysuria, No Urinary Frequency, No Hematuria, No Urinary Incontinence, No Urgency, No Flank Pain, No Urinary Flow Changes, No Hesitancy Musculoskeletal : No joint pain, No Myalgias, No Joint Swelling Skin : No Skin Lesions, No rash Neuro : No Weakness, No Numbness, No Paresthesias, No Loss of Consciousness, No Dizziness, No Headache Psych : Complaining of anxiety No Depression, No SI/HI/AH/VH, No Social Issues, Heme/Lymph: No Bruising, No Bleeding,No Lymphadenopathy Endocrine : No Polyuria, No Polydipsia, No Temperature Intolerance [facility] Past Medical History Medical History (Updated 02/26/24 @ 20:08 by Perlita Harrington MD) Anxiety delivery delivered Surgical History H/O hand surgery Social History Social History Alcohol intake: never Patient Tobacco Use Status: Current everyday Tobacco user Smoked in Last 30 Days: Yes Substance Use Type: Marijuana Advance Directives: No Advance Directives Information Provided: No Do you have a plan to hurt others: No Plan Physical Exam 2 Vital Signs: Vital Signs: Last Vital Signs Temp 98.6 F 02/26/24 19:38 Pulse 92 02/26/24 19:38 Resp 16 02/26/24 19:38 BP 132/80 02/26/24 19:38 Pulse Ox 100 02/26/24 19:38 O2 Del Method Room Air 02/26/24 19:38 BMI result Body Mass Index 29.0 Const: Other: Appearance: Alert. Oriented X3. No acute distress. cheerful Eyes: Pupils equal, round and reactive to light. ENT: Pharynx normal. Neck: Normal inspection. Neck supple. No lymph nodes noted. No crepitus CVS: Normal heart rate and rhythm. Pulses normal. Normal S1 and S2 Respiratory: No respiratory distress. Breath sounds normal. No Wheezing. No rales Abdomen: Soft and nontender. No rigidity. No distention. Skin: Skin warm and dry. Normal skin color. Normal skin turgor. Extremities: No lower extremity edema. No Lacerations. No Rash Neuro: Oriented X 3. No motor deficit. No sensory deficit. Moving all extremities. No slurred speech. CN 2 through 12 grossly intact Psych: calm, cooperative, normal affect Course Course Course Narrative: This is a Rapid Medical Examination (RME) performed by Catina Mena PA-C in triage. Full HPI, ROS, assessment and treatment plan per primary provider in the Main ED. 33 yo female presents to the ER for evaluation of chest pain that started this morning. she reports her chest popped out and had to push it back it. she was very SOB. pain is middle of the chest and radiates through her body and to her lower back. worse with crying and stress. pain is currently 10/10. hypertensive in triage, crying, shallow rapid breathing. pain worse w/ deep inspiration and expiration. no leg swelling. pain is reproducible. Plan: CXR, EKG, labs Medical Decision Making Medical Decision Making [facility] Narrative: my interpretation of chest x-ray, no obvious abnormality. - My interpretation of EKG: Normal sinus rhythm, heart rate 69, no ST segment depression or elevation, no T-wave inversion, QTC 402 - my interpretation of labs, normal hematology and chemistry, normal troponin, COVID negative - patient states that she has been under a lot of stress lately, has noticed that when she gets more stress, her symptoms are more prominent. - Patient requested a phone number of behavioral health providers - patient has no risk factors for pulmonary embolism, score 0 Differential Diagnosis Differential Diagnoses: The differential diagnosis associated with the presentation includes ( ACS, anxiety) Lab Data [facility] Lab Attestation statement: I reviewed the patient's lab results. 02/26/24 17:56 02/26/24 17:56 Labs: Lab Results 02/26/24 Range/Units 17:56 WBC 8.8 (4.8-10.8) X10*3/uL RBC 4.73 (4.20-5.50) X10*6/uL Hgb 15.2 (12.0-16.0) g/dl Hct 42.8 (37.0-47.0) % MCV 90.5 (80.0-98.0) fL MCH 32.1 (27.0-33.0) pg MCHC 35.5 H (31.0-35.0) g/dl RDW 11.9 (11.0-16.0) % Plt Count 213 (160-400) X10*3/uL MPV 9.4 (9.4-12.3) fL Immature Gran % (Auto) 0.3 (0.0-0.4) % Neut % (Auto) 59.8 (45-73) % Lymph % (Auto) 34.2 (20-40) % [place] % (Auto) 4.2 (2-11) % Eos % (Auto) 1.2 (0-4) % Baso % (Auto) 0.3 (0-2) % Lymph # (Auto) 3.0 (1.2-4.9) X10*3/uL [place] # (Auto) 0.4 (0.1-1.2) X10*3/uL Eos # (Auto) 0.1 (0.0-0.4) X10*3/uL Baso # (Auto) 0.0 (0.0-0.2) X10*3/uL Abs Immat Gran (auto) 0.03 (0.00-0.03) X10*3/uL Absolute Neuts (auto) 5.3 (2.0-8.3) x10*3/uL Absolute Nucleated RBC 0.000 (0.0-0.012) X10*3/uL Nucleated RBC % (auto) 0.0 (0.0-0.2) /100WBC Sodium 141 (135-145) mmol/L Potassium 3.8 (3.3-5.1) mmol/L Chloride 106 (96-108) mmol/L Carbon Dioxide 27 (22-29) mmol/L Anion Gap 12 (12-20) BUN 9 (9-16) mg/dL Creatinine 0.78 (0.5-1.4) mg/dL Estim Creat Clear Calc TNP Estimated GFR > 60 Random Glucose 80 (60-115) mg/dL Calcium 9.7 (8.4-10.2) mg/dL Magnesium 2.1 (1.6-2.6) mg/dL Total Bilirubin 0.5 (0.0-1.0) mg/dL Direct Bilirubin 0.2 (0.0-0.5) mg/dL AST 15 (5-31) U/L ALT 12 (0-31) U/L Alkaline Phosphatase 54 (39-117) U/L Troponin I High Sens < 2.7 (<3.5-17.0) ng/L Total Protein 7.5 (6.5-8.0) g/dL Albumin 4.5 (3.5-5.0) g/dL Urine Color Yellow Urine Appearance Clear Urine pH 7.5 (5.0-9.0) Ur Specific [place] 1.010 (1.005-1.025) Urine Protein Negative (Neg-Trace) mg/dL Urine Glucose (UA) Negative (Negative) mg/dL Urine Ketones Negative (Negative) mg/dL Urine Blood Negative (Negative) Urine Nitrite Negative (Negative) Ur Leukocyte Esterase Negative (Negative) Urine Test NEGATIVE (NEGATIVE) COVID-19 (YOAV) Negative (Negative) COVID-19 Clin Com See Note Independent Interpretation I performed an independent interpretation of an: EKG and Plain X-Ray Radiology Impression Discussion of test interpretation with radiology: I have reviewed the radiologist's reading. Radiologist Impression: The cardiomediastinal silhouette is within normal limits. The lungs are well expanded. There is no focal consolidation, edema, or effusion. No pneumothorax. No acute osseous abnormality. XR/XR chest 2V IMPRESSION: No acute pulmonary process. Scores Heart Score History: -0- slightly suspicious ECG: -0- normal Age: -0- < or = 45 Risk factory: -0- no risk factors known Troponin: -0- < or = normal limit Score: 0 Risk: 1.7% Critical Care Time Critical Care Time Critical Care Time: Yes Total Critical Care Time: 30 Attestation: I have personally provided critical care time. Time includes review of lab data, radiology results, discussion with consultants, and monitoring for potential decompensation. Intervention performed as documented. Discharge Plan Discharge Clinical Impression: Atypical chest pain, Anxiety Patient Disposition: Home, Self-Care Instructions: Chest Pain (ED), Anxiety (ED) Additional Instructions: Please follow-up with your primary care physician tomorrow. If you have any worsening or new symptoms, please return to the emergency room or call 911 Prescriptions: New hydroxyzine HCl 25 mg tablet 25 mg PO TID PRN (Reason: nausea and vomiting) Qty: 14 0RF Rx Instructions: p.r.n. anxiety No Action naproxen 500 mg tablet 500 mg PO BID PRN (Reason: pain) Qty: 10 0RF Print Language: [place] Islander
[2024-02-26 18:25] VITALS: BP 144/100; PULSE 80; RESP 18; TEMP 36.8; O2SAT 100; BMI 29.0
[2024-02-26 18:25] LABS: Alanine Aminotransferase 12 U/L (0-31); Albumin Level 4.5 g/dL (3.5-5.0); Alkaline Phosphatase 54 U/L (39-117); Anion Gap 12 (12-20); Aspartate Amino Transferase 15 U/L (5-31); Bilirubin Direct 0.2 mg/dL (0.0-0.5); Bilirubin Total 0.5 mg/dL (0.0-1.0); Blood Urea Nitrogen 9 mg/dL (9-16); Calcium 9.7 mg/dL (8.4-10.2); Carbon Dioxide 27 mmol/L (22-29); Chloride 106 mmol/L (96-108); Estimated Glomerular Filt Rate > 60; Glucose Random 80 mg/dL (60-115); Magnesium 2.1 mg/dL (1.6-2.6); Potassium 3.8 mmol/L (3.3-5.1); Sodium 141 mmol/L (135-145); Total Protein 7.5 g/dL (6.5-8.0)
[2024-02-26 18:27] LABS: COVID-19 Test Negative (Negative); IDNOW Serial# 58CA691E
[2024-02-26 18:32] LABS: Troponin-I High Sensitivity < 2.7 ng/L (<3.5-17.0)
[2024-02-26 18:37] LABS: UPreg QC Valid YES; Urine Pregnancy NEGATIVE (NEGATIVE)
--- NOTE | 2024-02-26 19:23 | MHC.EDTECH ---
Changed pt in to gown and put on monitor in rm 3
[2024-02-26 19:38] VITALS: BP 132/80; PULSE 79; PULSE 92; RESP 16; TEMP 37; O2SAT 100
== END 2024-02-26 20:55 | disposition home or self-care (01) ==
PROVIDERS: Physician Assistant; Emergency Provider Emergency Medicine
DX: R07.89 Other chest pain (principal); R00.2 Palpitations; F43.9 Reaction to severe stress, unspecified; F41.1 Generalized anxiety disorder; F43.0 Acute stress reaction; Z11.52 Encounter for screening for COVID-19; Z79.899 Other long term (current) drug therapy
CPT/HCPCS: 71046; 80048; 80076; 81003; 81025; 83735; 84484; 85025; 87635; 93005; 99283; 99285

== ENCOUNTER 2024-07-10 11:36 | Emergency (ER) | payer MEDICAID, SELFPAY ==
[2024-07-10 12:01] VITALS: BP 127/82; PULSE 80; RESP 16; O2SAT 98; BMI 29.1
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
[2024-07-10 13:46] VITALS: BP 127/82; PULSE 80; RESP 16; TEMP -17.7; TEMP 0; O2SAT 98
[2024-07-10 14:57] LABS: CT PCR NOT DETECTED (Not Detect.); NG PCR NOT DETECTED (Not Detect.)
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
== END 2024-07-10 13:47 | disposition home or self-care (01) ==
PROVIDERS: Physician Assistant; Emergency Provider Emergency Medicine
DX: Z20.2 Contact with and (suspected) exposure to infections with a predominantly sexual mode of transmission (principal); F17.200 Nicotine dependence, unspecified, uncomplicated; F12.90 Cannabis use, unspecified, uncomplicated
CPT/HCPCS: 87491; 87591; 99282; 99283

== ENCOUNTER 2024-08-16 12:37 | Emergency (ER) | payer MEDICAID, SELFPAY ==
--- NOTE | ~2024-08-16 | US_ITS ---
CLINICAL HISTORY: ovarian pain L>R, ?IUD issue US pelvis transabdominal and transvaginal with Doppler Comparison: CT/SR - CT ABDOMEN PELVIS W IV CON - 04/01/22 06:27 EDT Findings: Transabdominal scanning performed for overall anatomy. Transvaginal scanning performed for additional detail. Anteverted uterus is 7.9 cm length. Normal myometrium. No endometrial lesion, 2 mm thickness. There is an intrauterine device within the endometrial canal. Right ovary 2.7 x 2.5 x 2.8 cm. Left ovary 2.6 x 1.9 x 2.4 cm. Normal color Doppler with arterial/venous spectral tracing of both ovaries. A 12 mm corpus luteal cyst was incidentally documented within the right ovary. No free fluid. IMPRESSION: 1. Intrauterine device within the endometrial canal. Otherwise unremarkable examination This document has been electronically signed by: Unique Casillas MD on 08/16/2024 14:26:14
--- NOTE | ~2024-08-16 | CT_ITS ---
CLINICAL HISTORY: rlq PAIN CT abdomen and pelvis with contrast Comparison: CT/SR - CT ABDOMEN PELVIS W IV CON - 04/01/22 06:27 EDT Findings: No consolidation or effusion. Unremarkable abdominal organs. Calcified gallstone present within the gallbladder. Moderate distention of the stomach. No colitis or bowel obstruction. Small umbilical hernia containing fat. Small amount of pelvic free fluid. Intrauterine device within the endometrial canal. Involuting corpus luteal cyst within the right ovary. Normal appendix. No acute fracture. IMPRESSION: 1. Cholelithiasis. 2. Small amount of pelvic free fluid. 3. Involuting corpus luteal cyst within the right ovary. 4. Small umbilical hernia containing fat. 5. Moderate distention of the stomach. This document has been electronically signed by: Unique Casillas MD on 08/16/2024 15:42:29
[2024-08-16 12:42] VITALS: BP 105/81; PULSE 105; RESP 20; TEMP 37; O2SAT 98; BMI 29.7
--- NOTE | 2024-08-16 12:43 | ED_ITS ---
HPI - General Chief complaint: Abdominal Pain Stated complaint: IUD issues, ovarian pain Time Seen by Provider: 08/16/24 13:47 Source: patient Mode of arrival: ambulatory Limitations: no limitations History of Present Illness ED Provider: liila Severino HPI Narrative: This is a 33-year-old female presenting with complaints of right lower quadrant pain/pelvic pain that started about a week ago she also reports associated back pain, diarrhea with specks of bright red blood in it intermittently ( last bm with blood 1 week ago) , nausea. She reports the pain started after having intercourse. She reports she has a ten year IUD which is and she has not yet gotten it out. Patient denies concerns for . Denies vaginal bleeding/ spotting. Doesnt have normal periods. Not on blood thinners. She denies concerns for STD/STIs and reports she was just recently tested. Related Data Previous Rx's ?Medication ?Instructions ?Recorded naproxen 500 mg tablet 500 mg PO BID PRN pain #10 tabs 12/28/22 hydroxyzine HCl 25 mg tablet 25 mg PO TID PRN nausea and 02/26/24 vomiting #14 tabs Allergies Allergy/AdvReac Type Severity Reaction Status Date / Time amoxicillin Allergy Anaphylaxis Verified 08/16/24 12:45 Penicillins Allergy Difficulty Verified 08/16/24 12:45 Swallowing Review of Systems 2 Review of Systems: Yes all other systems are reviewed and are negative [facility] Past Medical History Attestation statement: The following information was validated with the patient. Source: old records reviewed and nursing notes reviewed Medical History Anxiety delivery delivered Surgical History H/O hand surgery Social History Social History Alcohol intake: never Patient Tobacco Use Status: Current everyday Tobacco user Substance Use Type: Marijuana Advance Directives: No Advance Directives Information Provided: No Physical Exam 2 Vital Signs: Vital Signs: Last Vital Signs Temp 98.6 F 08/16/24 12:42 Pulse 105 H 08/16/24 12:42 Resp 20 08/16/24 12:42 BP 105/81 08/16/24 12:42 Pulse Ox 98 08/16/24 12:42 O2 Del Method Room Air 08/16/24 12:42 BMI result Body Mass Index 29.7 vss Appearance: Alert.? Oriented X3.? No acute distress.? Head: Normocephalic, atraumatic, no step-offs or deformities Eyes: Pupils equal, round and reactive to light.? CVS: Normal heart rate and rhythm.? Pulses normal.? Respiratory: No respiratory distress.? Breath sounds normal.? Abdomen: Soft and nontender.?Negative murphys, rosving, mcburneys Skin: Skin warm and dry.? Normal skin color.? Normal skin turgor.? Extremities: No lower extremity edema.? No calf ttp. 5/5 strength to bilateral upper and lower extremities Back: No midline tenderness, no C-spine tenderness, full range of motion, no CVA tenderness bilaterally Neuro: Oriented X 3.? No motor deficit.? No sensory deficit. CN 2-12 intact. No saddle anesthesia. Course Course Course Narrative: This is a Rapid Medical Examination (RME) performed by Stephani Hernandez PA-C in triage. Full HPI, ROS, assessment and treatment plan per primary provider in the Main ED. 33 yo female here for eval of constant pelvic pain (L>R) which began shortly after having intercourse 1 week ago. she currently has mirena IUD placed a few yrs ago. admits to regular unprotected intercourse with her on/off partner. no hx of ectopic . assoc bloody diarrhea. no urinary sx. no vaginal bleeding or discharge. Plan: labs, UA, CT/NG, pelvic US Reevaluation(s) Reevaluation #1: Patient is adamant that she wants her IUD out. I did go over the risks of getting the IUD out such as bleeding, complications with removal, and patient can become since this is removed. These risks were gone over with the patient I answered all questions and patient verbalized understanding LILIA Mota at the bedside w/ me who was a witness when I answered all questions and patient verbalized understanding. IUD was successfully removed in its entirety. No complications. No bleeding. No pain. Patient immediately felt better. Both verbal and written consent obtained. Written consent in patient's chart. Time: 15:42 Reevaluation #2: CBC unremarkable. Chemistry with no acute findings needing intervention. Beta hCG negative. Patient tells me she just had STD testing done here not long ago. She had a negative chlamydia and gonorrhea test on 07/10/2024. Patient's CT abdomen pelvis with cholelithiasis however negative Alexandre sign and no abdominal pain to right upper quadrant. Small amount of free fluid in the pelvis. Corpus luteal cyst within the right ovary. Small umbilical hernia containing fat. Moderate distention of the stomach. Ultrasound with an intrauterine device within the endometrial canal. Otherwise unremarkable exam. Urine pending Time: 15:47 Reevaluation #3: Patient's UA clean. At this time she will be discharged home with supportive measures. Advised to follow up with automobile rental representative. Medications Administered Discontinued Medications Generic Name Dose Route Start Last Admin Trade Name Freq PRN Reason Stop Dose Admin Iohexol 100 ml 08/16/24 14:55 08/16/24 14:57 Iohexol 350 Mg/Ml 100 Ml Infus..Btl IV 08/16/24 14:56 85 ml ONCE ONE Administration Medical Decision Making Medical Decision Making [facility] Narrative: 33 yo f presents w/ LLQ pain, bloody diarrhea, and pelvic pain X 1 week Physical exam mild left lower quadrant discomfort on exam. History and physical exam concerning with cramping versus pelvic pain from IUD. Unlikely ectopic, torsion, appendicitis, cholecystitis, acute abdomen, pancreatitis, diverticulitis, obstruction. Will rule out UTI, STDs. Patient is adamant that she wants her IUD removed. I told her I will wait for images to ensure it is not imbedded or malpositioned. Differential Diagnosis Differential Diagnoses: The differential diagnosis associated with the presentation includes (History and physical exam concerning with cramping versus pelvic pain from IUD. Unlikely ectopic, torsion, appendicitis, cholecystitis, acute abdomen, pancreatitis, diverticulitis, obstruction. Will rule out UTI, STDs.) Admission/Observation Consideration of admission/observation: Escalation of care including admission/observation considered (possible ) Lab Data [facility] Lab Attestation statement: I reviewed the patient's lab results. 08/16/24 12:52 08/16/24 12:52 Labs: Lab Results 08/16/24 08/16/24 Range/Units 12:52 15:56 WBC 8.6 (4.8-10.8) X10*3/uL RBC 4.60 (4.20-5.50) X10*6/uL Hgb 14.1 (12.0-16.0) g/dl Hct 41.4 (37.0-47.0) % MCV 90.0 (80.0-98.0) fL MCH 30.7 (27.0-33.0) pg MCHC 34.1 (31.0-35.0) g/dl RDW 12.0 (11.0-16.0) % Plt Count 198 (160-400) X10*3/uL MPV 8.9 L (9.4-12.3) fL Immature Gran % (Auto) 0.2 (0.0-0.4) % Neut % (Auto) 59.3 (45-73) % Lymph % (Auto) 32.1 (20-40) % [place] % (Auto) 6.2 (2-11) % Eos % (Auto) 2.1 (0-4) % Baso % (Auto) 0.1 (0-2) % Lymph # (Auto) 2.8 (1.2-4.9) X10*3/uL [place] # (Auto) 0.5 (0.1-1.2) X10*3/uL Eos # (Auto) 0.2 (0.0-0.4) X10*3/uL Baso # (Auto) 0.0 (0.0-0.2) X10*3/uL Abs Immat Gran (auto) 0.02 (0.00-0.03) X10*3/uL Absolute Neuts (auto) 5.1 (2.0-8.3) x10*3/uL Absolute Nucleated RBC 0.000 (0.0-0.012) X10*3/uL Nucleated RBC % (auto) 0.0 (0.0-0.2) /100WBC Sodium 139 (135-145) mmol/L Potassium 4.0 (3.3-5.1) mmol/L Chloride 109 H (96-108) mmol/L Carbon Dioxide 24 (22-29) mmol/L Anion Gap 10 L (12-20) BUN 14 (9-16) mg/dL Creatinine 0.79 (0.5-1.4) mg/dL Estim Creat Clear Calc 110.2 Estimated GFR > 60 Random Glucose 72 (60-115) mg/dL Calcium 9.0 D (8.4-10.2) mg/dL Magnesium 1.9 (1.6-2.6) mg/dL Total Bilirubin 0.5 (0.0-1.0) mg/dL AST 26 (5-31) U/L ALT 21 (0-31) U/L Alkaline Phosphatase 61 (39-117) U/L Total Protein 7.6 (6.5-8.0) g/dL Albumin 4.2 (3.5-5.0) g/dL Lipase 10 (8-78) U/L Beta HCG, Quant < 2 mIU/mL Urine Color Yellow Urine Appearance Clear Urine pH 6.0 (5.0-9.0) Ur Specific Page 1.025 (1.005-1.025) Urine Protein Negative (Neg-Trace) mg/dL Urine Glucose (UA) Negative (Negative) mg/dL Urine Ketones Negative (Negative) mg/dL Urine Blood Negative (Negative) Urine Nitrite Negative (Negative) Ur Leukocyte Esterase Negative (Negative) Urine Test NEGATIVE (NEGATIVE) Independent Interpretation I performed an independent interpretation of an: Ultrasound and CT Scan Radiology Impression Discussion of test interpretation with radiology: I have reviewed the radiologist's reading. External Record Review External record reviewed: Inpatient record, Office record, Outpatient record, Prior outpatient labs, Prior outpatient radiology, Primary care record and Outside ED record Chronic Conditions Patient?s care impacted by: Other (denies ) Critical Care Time Critical Care Time Critical Care Time: Yes Total Critical Care Time: 35 Attestation: I attest to this time spent taking care of the patient, obtaining history, physical, reviewing labs, imaging, treatment of patients condition +/- specialist/hospitalist consult and or procedure Discharge Plan Discharge Clinical Impression: Abdominal pain, Encounter for IUD removal, Pelvic pain Patient Disposition: Home, Self-Care Instructions: Abdominal Pain (ED), Heat Pack Application (ED), Pelvic Pain (ED), Removal of Control Implant (DC) Additional Instructions: Take your medications as prescribed. If you were prescribed antibiotics today, it is important that you take your medication to their entirety, do not skip any doses, do not finish them early. Follow-up with your primary care provider this week. Return to the emergency department with new or worsening symptoms. Such as fevers, chills, chest pain, shortness of breath, nausea, vomiting, dizziness, headache, vision changes, lethargy In case of emergency call 911 Please follow-up with OBGYN Your IUD was removed on 08/16/2024 per your request. Please now that you can become after removal. Please practice safe sexual practices if engaging in sexual activity. If you experience severe pain, bleeding you must return immediately. You can use warm compresses/heating pads to abdomen for cramping if needed. And you can alternate ibuprofen every 6 hours, Tylenol every 4 not to exceed maximum daily dosing as listed on packaging. CT abdomen w/ contrast IMPRESSION: 1. Cholelithiasis. 2. Small amount of pelvic free fluid. 3. Involuting corpus luteal cyst within the right ovary. 4. Small umbilical hernia containing fat. 5. Moderate distention of the stomach. US pelvic/transvaginal IMPRESSION: 1. Intrauterine device within the endometrial canal. Otherwise unremarkable examination Prescriptions: No Action naproxen 500 mg tablet 500 mg PO BID PRN (Reason: pain) Qty: 10 0RF hydroxyzine HCl 25 mg tablet 25 mg PO TID PRN (Reason: nausea and vomiting) Qty: 14 0RF Rx Instructions: p.r.n. anxiety Referrals: Physician,Unknown J [Primary Care Provider] - 2 days Stand Alone Forms: Work/School Release Print Language: St Helen[place]
[2024-08-16 12:57] LABS: MANUAL DIFF FLAG NO
[2024-08-16 12:59] LABS: Basophils Percent Auto 0.1 % (0-2); Eosinophils Absolute Auto 0.2 X10*3/uL (0.0-0.4); Eosinophils Percent Auto 2.1 % (0-4); Hematocrit 41.4 % (37.0-47.0); Hemoglobin 14.1 g/dl (12.0-16.0); Imm Gran Abs Auto 0.02 X10*3/uL (0.00-0.03); Imm Gran Pct Auto 0.2 % (0.0-0.4); Lymphocytes Absolute Auto 2.8 X10*3/uL (1.2-4.9); Lymphocytes Percent Auto 32.1 % (20-40); Mean Corpuscular HGB Conc 34.1 g/dl (31.0-35.0); Mean Corpuscular Hemoglobin 30.7 pg (27.0-33.0); Mean Platelet Volume 8.9 fL (9.4-12.3); Monocytes Absolute Auto 0.5 X10*3/uL (0.1-1.2); Monocytes Percent Auto 6.2 % (2-11); Neutrophils Absolute Auto 5.1 x10*3/uL (2.0-8.3); Neutrophils Percent Auto 59.3 % (45-73); Platelet Count 198 X10*3/uL (160-400); White Blood Count 8.6 X10*3/uL (4.8-10.8)
[2024-08-16 13:22] LABS: Alanine Aminotransferase 21 U/L (0-31); Albumin Level 4.2 g/dL (3.5-5.0); Alkaline Phosphatase 61 U/L (39-117); Anion Gap 10 (12-20); Aspartate Amino Transferase 26 U/L (5-31); Bilirubin Total 0.5 mg/dL (0.0-1.0); Blood Urea Nitrogen 14 mg/dL (9-16); Carbon Dioxide 24 mmol/L (22-29); Chloride 109 mmol/L (96-108); Creatinine Clr Calc Pharmacy 110.2; Estimated Glomerular Filt Rate > 60; Glucose Random 72 mg/dL (60-115); Lipase 10 U/L (8-78); Magnesium 1.9 mg/dL (1.6-2.6); Sodium 139 mmol/L (135-145); Total Protein 7.6 g/dL (6.5-8.0)
[2024-08-16 13:30] LABS: HCG Quantitative < 2 mIU/mL
[2024-08-16] MEDS: iohexoL 350 MG/ML 100 ML INFUS..BTL IV (14:57)
[2024-08-16 16:06] LABS: Appearance Urine Clear; Color Urine Yellow; Glucose Urine UA Negative (Negative); Leukocyte Esterase Urine Negative (Negative); Nitrite Urine Negative (Negative); Specific Gravity - Urine 1.025 (1.005-1.025); Urine Blood Negative (Negative); Urine Ketones Negative (Negative); Urine Protein Negative (Neg-Trace)
[2024-08-16 16:08] LABS: UPreg QC Valid YES; Urine Pregnancy NEGATIVE (NEGATIVE)
[2024-08-16] MEDS: Acetaminophen 325 MG TABLET 975 MG PO (16:11)
[2024-08-16 16:26] VITALS: BP 105/81; PULSE 105; RESP 20; TEMP 37; O2SAT 98
[2024-08-17 10:24] LABS: CT PCR NOT DETECTED (Not Detect.); NG PCR NOT DETECTED (Not Detect.)
== END 2024-08-16 16:27 | disposition home or self-care (01) ==
PROVIDERS: Physician Assistant Medical; Emergency Provider Emergency Medicine
DX: R10.2 Pelvic and perineal pain (principal); Z30.432 Encounter for removal of intrauterine contraceptive device; N83.11 Corpus luteum cyst of right ovary; F17.200 Nicotine dependence, unspecified, uncomplicated; F12.90 Cannabis use, unspecified, uncomplicated
CPT/HCPCS: 36415; 58301; 74177; 76830; 76856; 80053; 81003; 81025; 83690; 83735; 84702; 85025; 87491; 87591; 93975; 99284; Q9967

== ENCOUNTER → 2024-08-16 12:47 | Outpatient (BNV) | payer MEDICAID, SELFPAY | PROVIDERS: Emergency Provider Emergency Medicine; Visit Provider Radiology Diagnostic Radiology | DX: R10.2 Pelvic and perineal pain (principal); R10.32 Left lower quadrant pain | CPT/HCPCS: 74177; 76830; 76856; 93975 ==

== ENCOUNTER 2024-10-30 07:38 | Emergency (ER) | payer MEDICAID, SELFPAY ==
[2024-10-30 07:40] VITALS: BP 141/88; PULSE 74; RESP 18; TEMP 36.6; O2SAT 98; BMI 28.3
--- NOTE | 2024-10-30 07:41 | ED_ITS ---
HPI - General Adult General Chief complaint: General Medical Stated complaint: Headache, cough, sore throat Time Seen by Provider: 10/30/24 07:40 Source: patient Mode of arrival: ambulatory Limitations: no limitations History of Present Illness ED Provider: Loyd Harden PA-C HPI narrative: 33-year-old female with medical history of anxiety presents to the ED today due to sore throat, headache, and congestion. Patient states she woke up about 4:00 a.m. this morning with head pressure, sore throat, and nasal congestion that worsened as the morning went on prompting her to seek care in the ED. She states that her kids were sick last week with the same symptoms. She reports taking Mucinex and throat lozenges without effect. She denies fever, chills, chest pain, SOB, nausea, vomiting, diarrhea. MD complaint: sore throat Onset (ago): hour(s) (4 ) Relieving factors: none Exacerbating factors: movement Associated symptoms: headaches Treatments prior to arrival: other (mucinex ) Related Data Previous Rx's ?Medication ?Instructions ?Recorded naproxen 500 mg tablet 500 mg PO BID PRN pain #10 tabs 12/28/22 hydroxyzine HCl 25 mg tablet 25 mg PO TID PRN nausea and 02/26/24 vomiting #14 tabs Allergies Allergy/AdvReac Type Severity Reaction Status Date / Time amoxicillin Allergy Anaphylaxis Verified 10/30/24 07:44 Penicillins Allergy Difficulty Verified 10/30/24 07:44 Swallowing Review of Systems Review of Systems: CONST: Negative for fever, body aches and chills. HENT: Negative for neck pain/stiffness. POS headache, sore throat, congestion EYES: Negative for discharge/pain or vision changes. RESP: Negative for cough/hemoptysis and shortness of breath. CV: Negative chest pain, difficulty breathing, palpitations. ABD: Negative pain, nausea, vomiting. : Negative increase frequency, dysuria, blood in urine or stool. MUSC: Negative for muscle aches, edema. SKIN: Negative rash, lesions/sores. NEURO: lightheadedness, dizziness, weakness. Yes all other systems are reviewed and are negative PMFSH Past Medical History Attestation statement: The following information was validated with the patient. Source: old records reviewed and nursing notes reviewed Medical History Anxiety delivery delivered Surgical History H/O hand surgery Social History Social History Alcohol intake: never Patient Tobacco Use Status: Current everyday Tobacco user Substance Use Type: Marijuana Advance Directives: No Advance Directives Information Provided: Yes Patient : No Physical Exam ED Vital Signs: Vital Signs - 24 hr 10/30/24 07:40 Temperature 97.9 F Pulse Rate 74 Respiratory Rate 18 Blood Pressure 141/88 H Pulse Oximetry 98 Oxygen Delivery Method Room Air BMI result Body Mass Index 28.3 Const General: cooperative, healthy appearing, comfortable, no acute distress, alert and awake Nutritional Appearance: average body habitus Orientation/consciousness: patient oriented x3 Limitations: no limitations HENMT Head: Yes normal to inspection and Yes normocephalic Ears: hearing grossly normal bilaterally General nose exam: Normal external nose present Mouth: Normal oral and palatal mucosa present, oropharynx normal and moist mucous membranes Throat: Yes posterior oropharynx normal, Yes tonsils normal, Yes uvula midline, No abnormal tonsil and No uvula laterally displaced Eyes General: appearance normal, both eyes and all related structures Pupils: Equal, round and reactive pupils present EOM: EOMs intact bilaterally Neck Neck: Yes normal visual inspection and Yes full ROM Chest Chest palpation & inspection: normal inspection of the chest Resp Effort & Inspection: normal respiratory effort, able to speak in complete sentences, no audible wheezes, no cough, no stridor, not tachypneic, no tracheal deviation, no tripod positioning and no use of accessory muscles Auscultation: clear to auscultation bilaterally, no crackles, no rales, no rhonchi, no wheezes, breath sounds present and lung sounds not diminished Cardio Jugular venous distension: no JVD Rate: regular rate Rhythm: regular rhythm Heart sounds: S1 normal heart sound present and S2 normal heart sound present Skin General skin exam: no rashes or lesions noted Neuro General: patient oriented x3 Cranial nerves: Yes Equal, round and reactive pupils present Medical Decision Making Medical Decision Making MDM Narrative: 33-year-old female with medical history of anxiety presents to the ED today due to sore throat, headache, and congestion. Patient reports kids were sick last week with same symptoms. VSS, nontoxic appearing, in no acute distress. physical exam benign. Lungs clear to auscultation bilaterally. Oropharynx without erythema, edema. Mucous membranes moist, Airway patent. Afebrile. At this time suspect viral illness will get COVID/RSV/ flu swabs and rapid strep. Course 09:33- Viral swabs negative, rapid strep swab negative. Patient resting comfortably, feels comfortable to go home for oral hydration and rest. Differential Diagnosis Differential Diagnoses: The differential diagnosis associated with the presentation includes COVID Flu RSV Viral illness Pharyngitis Admission/Observation Consideration of admission/observation: Escalation of care including admission/observation considered Lab Data MDM Lab Attestation statement: I reviewed the patient's lab results. Labs: Lab Results 10/30/24 Range/Units 07:54 Influenza Type A (PCR) NEGATIVE (Negative) Influenza Type B (PCR) NEGATIVE (Negative) RSV RNA Qual (PCR) NEGATIVE (Negative) SARS-CoV-2 RNA (RT-PCR) NEGATIVE (Negative) S. pyogenes GrpA REYES Negative (Negative) External Record Review External record reviewed: Inpatient record and Outpatient record Discharge Plan Discharge Clinical Impression: Viral illness Patient Disposition: Home, Self-Care Instructions: Viral Syndrome (ED) Additional Instructions: you were evaluated in the emergency department today due to headache, sore throat and congestion. Your viral swabs for COVID/RSV/ flu and your rapid swab for strep were negative. Although these were negative there are still many other viruses that we do not test for that could be causing your illness. You can alternate Tylenol/ Motrin every 6 hours for pain relief. Stay hydrated by drinking plenty of fluids and maintain good caloric intake. Get plenty of rest. Please return to the emergency department if you start to experience chest pain, shortness of breath, fever over 100.4?, difficulty breathing, or any other worsening, new, or concerning symptoms. Prescriptions: No Action naproxen 500 mg tablet 500 mg PO BID PRN (Reason: pain) Qty: 10 0RF hydroxyzine HCl 25 mg tablet 25 mg PO TID PRN (Reason: nausea and vomiting) Qty: 14 0RF Rx Instructions: p.r.n. anxiety Print Language: Estonian
[2024-10-30 08:10] LABS: IDNOW Serial# 58CA691E; Strep A Nucleic Acid Negative (Negative)
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
[2024-10-30 09:14] LABS: Influenza A PCR NEGATIVE (Negative); Influenza B PCR NEGATIVE (Negative); Resp Syncy Virus RNA Qual PCR NEGATIVE (Negative); SARS COV2 PCR INHOUSE NEGATIVE (Negative)
[2024-10-30 09:52] VITALS: BP 141/88; PULSE 74; RESP 18; TEMP 36.6; O2SAT 98
== END 2024-10-30 09:52 | disposition home or self-care (01) ==
PROVIDERS: Emergency Provider Emergency Medicine
DX: B34.9 Viral infection, unspecified (principal); R05.9 Cough, unspecified; J02.9 Acute pharyngitis, unspecified; F17.200 Nicotine dependence, unspecified, uncomplicated; F12.90 Cannabis use, unspecified, uncomplicated; Z03.818 Encounter for observation for suspected exposure to other biological agents ruled out
CPT/HCPCS: 0241U; 87651; 99283

== ENCOUNTER 2024-12-17 19:07 | Emergency (ER) | payer MEDICAID, SELFPAY ==
--- NOTE | ~2024-12-17 | US_ITS ---
EXAMINATION: US FIRST TRIMESTER OB HISTORY: abd cramping, +hcg test TECHNIQUE: Endovaginal scanning was performed. FINDINGS: There is a single, live intrauterine . A small crescentic hypoechoic echoic structure is seen adjacent to the gestational sac, compatible with a small subchorionic hemorrhage. AUA = 8 weeks 6 days ANAIS(AUA) = 07/23/2025 LMP = 09/18/2024 GA(LMP) = 12 weeks 6 days ANAIS(LMP) = 06/25/2025 CRL = 2.14 cm Yolk Sac: seen FHR = 176 bpm Right ovary: The right ovary measures 2.7 x 2.0 x 1.7 cm and is unremarkable. Left ovary: The left ovary measures 3.6 x 2.1 x 1.7 cm and is unremarkable. Cul-de-sac: No free fluid US/US OB <= 14 weeks fetus IMPRESSION: Single, live intrauterine of estimated gestational age 8 weeks, 6 days. Small subchorionic hemorrhage. Follow-up is recommended.. Electronically signed by: Justin Wilkinson MD 12/25/2024 12:17 PM EDT
[2024-12-17 19:15] VITALS: BP 139/99; PULSE 119; RESP 20; TEMP 36.7; O2SAT 98; BMI 30.1
--- NOTE | 2024-12-17 19:15 | ED.PREGNANCY ---
HPI - General Chief complaint: Abdominal Pain Stated complaint: , pain + flushed blood Time Seen by Provider: 12/17/24 22:42 Source: patient Limitations: no limitations History of Present Illness ED Provider: Kami Lara PA-C HPI Narrative: 79-rzbb-ckz-female,, who presents to the ER with a complaint of vaginal bleeding. Reports that last week she had passed several vaginal clots, spotting off and on since. Started spotting again today. Having abdominal pain since. Had IUD taken out 08/16/2024 here. LMP September 18. Went to [facility] and had a +hCG test. Patient states she is spotting at this point. Related Data Previous Rx's ?Medication ?Instructions ?Recorded naproxen 500 mg tablet 500 mg PO BID PRN pain #10 tabs 12/28/22 hydroxyzine HCl 25 mg tablet 25 mg PO TID PRN nausea and 02/26/24 vomiting #14 tabs vit no.95-ferrous 1 tab PO DAILY #60 tabs 12/18/24 fumarate 28 mg-folic acid 800 mcg tablet () Allergies Allergy/AdvReac Type Severity Reaction Status Date / Time amoxicillin Allergy Anaphylaxis Verified 12/17/24 19:19 Penicillins Allergy Difficulty Verified 12/17/24 19:19 Swallowing Review of Systems Review of Systems: Yes all other systems are reviewed and are negative Constitutional: Constitutional: Denies fatigue and Denies fever(s) Cardiovascular: Cardiovascular: Denies chest pain and Denies dyspnea Respiratory: Respiratory: Denies dyspnea Gastrointestinal: Gastrointestinal: Reports abdominal pain, Reports GI cramping, Denies nausea and Denies vomiting Genitourinary: Genitourinary: Reports other (Bleeding) Endocrine: Endocrine: Denies fatigue PMFSH Past Medical History Attestation statement: The following information was validated with the patient. Medical History Anxiety delivery delivered Surgical History H/O hand surgery Social History Social History Alcohol intake: never Patient Tobacco Use Status: Current everyday Tobacco user Smoked in Last 30 Days: Yes Use of substances other than those prescribed or required for medical reasons: Yes Substance Use Type: Crack/Cocaine and Marijuana Substance Use Frequency: Daily Advance Directives: No Advance Directives Information Provided: No Patient : Yes Physical Exam Vital Signs: Vital Signs: Last Vital Signs Temp 98.1 F 12/17/24 19:15 Pulse 119 H 12/17/24 19:15 Resp 20 12/17/24 19:15 BP 139/99 H 12/17/24 19:15 Pulse Ox 98 12/17/24 19:15 BMI result Body Mass Index 30.1 Const: Other: Alert Orientation/consciousness: patient oriented x3 Resp: Effort & Inspection: normal respiratory effort Cardio: Other: Normal peripheral perfusion GI: Other: Soft nondistended nontender no guarding : Other: Deferred not bleeding Skin: Other: Warm dry no rash Neuro: General: patient oriented x3, gait normal, no focal motor deficits and CN's II-XI intact bilaterally Psych: Other: Cooperative Course Course Course Narrative: This is an RME: Additional HPI, ROS, PE not included below will be deferred to primary provider. RME assessment and note performed by: Giana Whiting PA-C This is a 25-idfo-zcb-female,, who presents to the ER with a complaint of vaginal bleeding. Reports that last week she had passed several vaginal clots, spotting off and on since. Started spotting again today. Having abdominal pain since. Had IUD taken out 08/16/2024 here. LMP September 18. Went to [facility] and had a +hCG test. Abdomen firm in the upper quadrants. Patient tachycardic however patient very anxious appearing. Plan: Labs, UA, ultrasound, EKG Medications Administered Discontinued Medications Generic Name Dose Route Start Last Admin Trade Name Freq PRN Reason Stop Dose Admin Ondansetron HCl 8 mg 12/17/24 23:35 12/17/24 23:52 Ondansetron Odt 8 Mg Tab.Rickydis TRANSLINGU 12/17/24 23:36 8 mg ONCE ONE Administration Medical Decision Making Medical Decision Making MDM Narrative: 41-urns-izs-female,, who presents to the ER with a complaint of vaginal bleeding. Reports that last week she had passed several vaginal clots, spotting off and on since. Started spotting again today. Having abdominal pain since. Had IUD taken out 08/16/2024 here. LMP September 18. Went to [facility] and had a +hCG test. Patient states she is spotting at this point. Problem: New and vaginal bleeding History: Per patient I have considered the following differential diagnoses: Ectopic, threatened , subchorionic hemorrhage, ovarian cyst rupture Plan: Screening labs including hCG and transvaginal ultrasound already ordered, tests are pending. Her H&H are stable and normal I have independently reviewed the following tests: Labs: No leukocytosis, not anemic, quant 175,197, no additional electrolyte abnormality Lab Data 12/17/24 19:34 12/17/24 19:35 Labs: Lab Results 12/17/24 12/17/24 Range/Units 19:34 19:35 WBC 8.9 (4.8-10.8) X10*3/uL RBC 4.53 (4.20-5.50) X10*6/uL Hgb 14.4 (12.0-16.0) g/dl Hct 39.0 (37.0-47.0) % MCV 86.1 (80.0-98.0) fL MCH 31.8 (27.0-33.0) pg MCHC 36.9 H (31.0-35.0) g/dl RDW 11.9 (11.0-16.0) % Plt Count 196 (160-400) X10*3/uL MPV 9.0 L (9.4-12.3) fL Immature Gran % (Auto) 0.1 (0.0-0.4) % Neut % (Auto) 64.0 (45-73) % Lymph % (Auto) 30.3 (20-40) % [place] % (Auto) 4.8 (2-11) % Eos % (Auto) 0.6 (0-4) % Baso % (Auto) 0.2 (0-2) % Lymph # (Auto) 2.7 (1.2-4.9) X10*3/uL [place] # (Auto) 0.4 (0.1-1.2) X10*3/uL Eos # (Auto) 0.1 (0.0-0.4) X10*3/uL Baso # (Auto) 0.0 (0.0-0.2) X10*3/uL Abs Immat Gran (auto) 0.01 (0.00-0.03) X10*3/uL Absolute Neuts (auto) 5.7 (2.0-8.3) x10*3/uL Absolute Nucleated RBC 0.000 (0.0-0.012) X10*3/uL Nucleated RBC % (auto) 0.0 (0.0-0.2) /100WBC Sodium 139 (135-145) mmol/L Potassium 3.7 (3.3-5.1) mmol/L Chloride 106 (96-108) mmol/L Carbon Dioxide 24 (22-29) mmol/L Anion Gap 13 (12-20) BUN 6 L (9-16) mg/dL Creatinine 0.66 (0.5-1.4) mg/dL Estim Creat Clear Calc 128.3 Estimated GFR > 60 Random Glucose 88 (60-115) mg/dL Calcium 9.1 (8.4-10.2) mg/dL Magnesium 2.1 (1.6-2.6) mg/dL Total Bilirubin 0.5 (0.0-1.0) mg/dL Direct Bilirubin 0.2 (0.0-0.5) mg/dL AST 18 (5-31) U/L ALT 10 (0-31) U/L Alkaline Phosphatase 47 (39-117) U/L Total Protein 7.2 (6.5-8.0) g/dL Albumin 4.4 (3.5-5.0) g/dL Beta HCG, Quant 211647 mIU/mL Discharge Plan Discharge Clinical Impression: and not yet delivered in first trimester Patient Disposition: Home, Self-Care Instructions: (ED) Additional Instructions: Ultrasound revealed a single, live intrauterine your measuring approximately 8 weeks 6 days. There was no abnormality noted on this ultrasound. You need to establish care. Call tomorrow to make an appointment. Take the vitamins as directed. Prescriptions: New PNV cmb#95-ferrous fumarate-FA [] 28 mg iron- 800 mcg tablet 1 tab PO DAILY Qty: 60 0RF No Action naproxen 500 mg tablet 500 mg PO BID PRN (Reason: pain) Qty: 10 0RF hydroxyzine HCl 25 mg tablet 25 mg PO TID PRN (Reason: nausea and vomiting) Qty: 14 0RF Rx Instructions: p.r.n. anxiety Print Language: [place]
--- NOTE | 2024-12-17 19:21 | ECG_ITS ---
Test Reason : tachy Blood Pressure : */* mmHG Vent. Rate : 101 BPM Atrial Rate : 101 BPM P-R Int : 146 ms QRS Dur : 72 ms QT Int : 316 ms P-R-T Axes : 67 -78 32 degrees QTcB Int : 409 ms Sinus tachycardia Left axis deviation Septal infarct (cited on or before 23-Jun-2023) Abnormal ECG When compared with ECG of 26-Feb-2024 17:01, No significant change was found Referred By: Giana Whiting Electronically Signed By: Pankaj Ontiveros
[2024-12-17 19:40] LABS: MANUAL DIFF FLAG NO
[2024-12-17 19:41] LABS: Hematocrit 39.0 % (37.0-47.0); Hemoglobin 14.4 g/dl (12.0-16.0); Imm Gran Abs Auto 0.01 X10*3/uL (0.00-0.03); Imm Gran Pct Auto 0.1 % (0.0-0.4); Lymphocytes Absolute Auto 2.7 X10*3/uL (1.2-4.9); Mean Corpuscular HGB Conc 36.9 g/dl (31.0-35.0); Mean Corpuscular Hemoglobin 31.8 pg (27.0-33.0); Mean Corpuscular Volume 86.1 fL (80.0-98.0); NRBC Abs Auto 0.000 X10*3/uL (0.0-0.012); NRBC Pct Auto 0.0 /100WBC (0.0-0.2); Platelet Count 196 X10*3/uL (160-400); Red Blood Count 4.53 X10*6/uL (4.20-5.50); White Blood Count 8.9 X10*3/uL (4.8-10.8)
[2024-12-17 20:03] LABS: Alanine Aminotransferase 10 U/L (0-31); Albumin Level 4.4 g/dL (3.5-5.0); Alkaline Phosphatase 47 U/L (39-117); Anion Gap 13 (12-20); Aspartate Amino Transferase 18 U/L (5-31); Blood Urea Nitrogen 6 mg/dL (9-16); Calcium 9.1 mg/dL (8.4-10.2); Carbon Dioxide 24 mmol/L (22-29); Chloride 106 mmol/L (96-108); Creatinine Clr Calc Pharmacy 128.3; Estimated Glomerular Filt Rate > 60; Magnesium 2.1 mg/dL (1.6-2.6); Potassium 3.7 mmol/L (3.3-5.1); Sodium 139 mmol/L (135-145); Total Protein 7.2 g/dL (6.5-8.0)
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
[2024-12-18 00:36] VITALS: BP 116/74; PULSE 79; RESP 16; TEMP 36.9; O2SAT 98
== END 2024-12-18 00:36 | disposition home or self-care (01) ==
PROVIDERS: Physician Assistant Medical; Emergency Provider Emergency Medicine
DX: O20.9 Hemorrhage in early pregnancy, unspecified (principal); R00.0 Tachycardia, unspecified; R10.2 Pelvic and perineal pain; Z3A.01 Less than 8 weeks gestation of pregnancy; Z79.899 Other long term (current) drug therapy
CPT/HCPCS: 36415; 76801; 80048; 80076; 83735; 84702; 85025; 93005; 99284

== ENCOUNTER → 2024-12-17 19:20 | Outpatient (BNV) | payer MEDICAID, SELFPAY | PROVIDERS: Emergency Provider Emergency Medicine; Visit Provider Radiology Diagnostic Radiology | DX: O26.891 Other specified pregnancy related conditions, first trimester (principal); Z3A.12 12 weeks gestation of pregnancy | CPT/HCPCS: 76801 ==

== ENCOUNTER → 2024-12-17 19:21 | Outpatient (BNV) | payer MEDICAID, SELFPAY | PROVIDERS: Emergency Provider Emergency Medicine; Visit Provider Internal Medicine Cardiovascular Disease | DX: R00.0 Tachycardia, unspecified (principal) | CPT/HCPCS: 93010 ==

== ENCOUNTER 2024-12-31 18:13 | Emergency (ER) | payer MEDICAID, SELFPAY ==
--- NOTE | 2024-12-31 18:15 | ED.GENADULT ---
HPI - General Adult General Chief complaint: General Medical Stated complaint: had an , coughing up blood Related Data Previous Rx's ?Medication ?Instructions ?Recorded naproxen 500 mg tablet 500 mg PO BID PRN pain #10 tabs 12/28/22 hydroxyzine HCl 25 mg tablet 25 mg PO TID PRN nausea and 02/26/24 vomiting #14 tabs vit no.95-ferrous 1 tab PO DAILY #60 tabs 12/18/24 fumarate 28 mg-folic acid 800 mcg tablet () Allergies Allergy/AdvReac Type Severity Reaction Status Date / Time amoxicillin Allergy Anaphylaxis Verified 12/31/24 18:17 Penicillins Allergy Difficulty Verified 12/31/24 18:17 Swallowing PMFSH Past Medical History Medical History Anxiety delivery delivered Surgical History H/O hand surgery Social History Social History Alcohol intake: never Patient Tobacco Use Status: Current everyday Tobacco user Use of substances other than those prescribed or required for medical reasons: Unknown Substance Use Type: Crack/Cocaine and Marijuana Advance Directives: No Advance Directives Information Provided: No Do you have a plan to hurt others: No Plan Physical Exam ED Vital Signs: BMI result Body Mass Index 30.9 Course Course Course Narrative: This is a rapid medical exam performed by Bernabe Navarro NP: Additional HPI, ROS, PE not included below will be deferred to primary provider. Patient is a 10-ghus[age]wdg-female,, recent medical on 12/25 presenting to the ED with report of coughing up blood tinged sputum just prior to arrival. Denies sore throat, recent cough or congestion, does complain of headache. Reports ongoing vaginal bleeding. Alert and oriented in triage, lungs clear, VSS. Plan: strep and viral swabs, basic labs Medical Decision Making Lab Data 12/31/24 18:31 12/31/24 18:31 Labs: Lab Results 12/31/24 Range/Units 18:31 WBC 7.8 (4.8-10.8) X10*3/uL RBC 3.92 L (4.20-5.50) X10*6/uL Hgb 12.4 (12.0-16.0) g/dl Hct 34.7 L (37.0-47.0) % MCV 88.5 (80.0-98.0) fL MCH 31.6 (27.0-33.0) pg MCHC 35.7 H (31.0-35.0) g/dl RDW 12.0 (11.0-16.0) % Plt Count 197 (160-400) X10*3/uL MPV 9.4 (9.4-12.3) fL Immature Gran % (Auto) 0.6 H (0.0-0.4) % Neut % (Auto) 62.1 (45-73) % Lymph % (Auto) 28.8 (20-40) % [place] % (Auto) 7.0 (2-11) % Eos % (Auto) 1.1 (0-4) % Baso % (Auto) 0.4 (0-2) % Lymph # (Auto) 2.3 (1.2-4.9) X10*3/uL [place] # (Auto) 0.6 (0.1-1.2) X10*3/uL Eos # (Auto) 0.1 (0.0-0.4) X10*3/uL Baso # (Auto) 0.0 (0.0-0.2) X10*3/uL Abs Immat Gran (auto) 0.05 H (0.00-0.03) X10*3/uL Absolute Neuts (auto) 4.9 (2.0-8.3) x10*3/uL Absolute Nucleated RBC 0.020 H (0.0-0.012) X10*3/uL Nucleated RBC % (auto) 0.3 H (0.0-0.2) /100WBC Sodium 137 (135-145) mmol/L Potassium 3.9 (3.3-5.1) mmol/L Chloride 108 (96-108) mmol/L Carbon Dioxide 23 (22-29) mmol/L Anion Gap 10 L (12-20) BUN 6 L (9-16) mg/dL Creatinine 0.57 (0.5-1.4) mg/dL Estim Creat Clear Calc 148.9 Estimated GFR > 60 Random Glucose 86 (60-115) mg/dL Calcium 9.3 (8.4-10.2) mg/dL Total Bilirubin 0.2 (0.0-1.0) mg/dL AST 23 (5-31) U/L ALT 19 (0-31) U/L Alkaline Phosphatase 48 (39-117) U/L Total Protein 6.8 (6.5-8.0) g/dL Albumin 3.9 (3.5-5.0) g/dL Influenza Type A (PCR) NEGATIVE (Negative) Influenza Type B (PCR) NEGATIVE (Negative) RSV RNA Qual (PCR) NEGATIVE (Negative) SARS-CoV-2 RNA (RT-PCR) NEGATIVE (Negative) S. pyogenes GrpA REYES Negative (Negative) Discharge Plan Discharge Clinical Impression: Blood-tinged sputum Patient Disposition: Left W/O Completing Treatment Prescriptions: No Action naproxen 500 mg tablet 500 mg PO BID PRN (Reason: pain) Qty: 10 0RF hydroxyzine HCl 25 mg tablet 25 mg PO TID PRN (Reason: nausea and vomiting) Qty: 14 0RF Rx Instructions: p.r.n. anxiety PNV cmb#95-ferrous fumarate-FA [] 28 mg iron- 800 mcg tablet 1 tab PO DAILY Qty: 60 0RF Discharge Date/Time: 12/31/24 21:36
[2024-12-31 18:16] VITALS: BP 117/78; PULSE 103; RESP 18; TEMP 36.4; O2SAT 98; BMI 30.9
[2024-12-31 18:35] LABS: MANUAL DIFF FLAG NO
[2024-12-31 18:43] LABS: IDNOW Serial# 58CA691E; Strep A Nucleic Acid Negative (Negative)
[2024-12-31 18:50] LABS: Alanine Aminotransferase 19 U/L (0-31); Albumin Level 3.9 g/dL (3.5-5.0); Alkaline Phosphatase 48 U/L (39-117); Anion Gap 10 (12-20); Aspartate Amino Transferase 23 U/L (5-31); Blood Urea Nitrogen 6 mg/dL (9-16); Calcium 9.3 mg/dL (8.4-10.2); Carbon Dioxide 23 mmol/L (22-29); Chloride 108 mmol/L (96-108); Creatinine Clr Calc Pharmacy 148.9; Estimated Glomerular Filt Rate > 60; Potassium 3.9 mmol/L (3.3-5.1); Sodium 137 mmol/L (135-145); Total Protein 6.8 g/dL (6.5-8.0)
[2024-12-31 18:53] LABS: Hematocrit 34.7 % (37.0-47.0); Hemoglobin 12.4 g/dl (12.0-16.0); Imm Gran Abs Auto 0.05 X10*3/uL (0.00-0.03); Imm Gran Pct Auto 0.6 % (0.0-0.4); Lymphocytes Absolute Auto 2.3 X10*3/uL (1.2-4.9); Mean Corpuscular HGB Conc 35.7 g/dl (31.0-35.0); Mean Corpuscular Hemoglobin 31.6 pg (27.0-33.0); Mean Corpuscular Volume 88.5 fL (80.0-98.0); NRBC Abs Auto 0.020 X10*3/uL (0.0-0.012); NRBC Pct Auto 0.3 /100WBC (0.0-0.2); Platelet Count 197 X10*3/uL (160-400); Red Blood Count 3.92 X10*6/uL (4.20-5.50); White Blood Count 7.8 X10*3/uL (4.8-10.8)
[2024-12-31 19:13] LABS: Resp Syncy Virus RNA Qual PCR NEGATIVE (Negative); SARS COV2 PCR INHOUSE NEGATIVE (Negative)
--- OUTSIDE RECORDS SUMMARY | 2024-12-31 19:28 | XMS_ITS | Clinical Summary ---
Author Organization [address] [facility] Address [address] [place] [address] Phone Care Team Providers Care Pipe Covering Molder Name Role Phone Delmy Ma Primary Care Provider [phone] Allergies Active Allergy Reactions Criticality Noted Date Comments Amoxicillin 10/31/2024 Penicillins Hives High 08/07/2018 Medications ibuprofen (ADVIL,MOTRIN) 800 mg tablet Take 1 tablet (800 mg total) by mouth every 8 (eight) hours if needed for moderate pain. 90 tablet 2 10/31/2024 01/30/20 25 Active Encounters Date Type Department Care Team Description 10/31/2024 11:30 AM EDT Office Visit Orthopedic Surgery - [place] [address] [facility] [address] [place] [address] Ammy Thakkar PA Tendinosis of [...] Human immunodeficiency virus (HIV) disease (CMS/HCC V24, CMS/[facility] V28) DX:Human immunodefi ciency virus (HIV) disease (HCC); COMMENT: From [facility] referral Nicotine addiction DX:Nicotine a ddiction Bipolar disorder (CMS/HCC V2 4, CMS/[facility] V28) DX:Bipolar disorder (HCC) Family History Relation [...] Influencers of Health Screening 07/10/2023 Depression Screening 06/11/2024 Influenza Vaccine (#1) 2025 05/03/2021 DTaP,Tdap,and Td [...] Procedure Name Priority Date/Time Associated Diagnosis Comments [place] ARTHROCENTESIS/ASPI RATION/INJECTION MAJOR JOINT/BURSA W/O U/S GUIDANCE Routine 10/31/2024 11:30 AM EDT Tendinosis of right rotator cuff Chronic right shoulder pain from Last 3 Months Results * [place] ARTHROCENTESIS/ASPIRATION/INJECTION MAJOR JOINT/BURSA W/O U/S GUIDANCE (10/31/2024 [...] Final Result from Last 3 Months Insurance MEDICAID [place]VANT[place] Care Teams Pipe Covering Molder Relationship Specialty Start Date End Date Delmy Ma PA [address] [place] [address] PCP - General 02/02/23
[2024-12-31 19:29] VITALS: BP 116/77; PULSE 83; RESP 18; TEMP 36.7; O2SAT 97
== END 2024-12-31 21:36 | disposition left against medical advice (07) ==
PROVIDERS: Registered Nurse Emergency; Emergency Provider Emergency Medicine
DX: R04.2 Hemoptysis (principal); Z79.899 Other long term (current) drug therapy
CPT/HCPCS: 80053; 85025; 87637; 87651; 99283; 99284

== ENCOUNTER 2025-05-24 12:53 | Emergency (ER) | payer MEDICAID, SELFPAY ==
--- NOTE | ~2025-05-24 | XR_ITS ---
CLINICAL HISTORY: L heel pain s p stomping Radiographs of the left foot, 3 views Comparison: None available Findings: Subtle cortical irregularity at the dorsal aspect of the midfoot in the region of the proximal metaphysis of the metatarsals seen on the lateral view. No dislocation. Chronic fragmentation of the os peroneum. The joint spaces are preserved without osteophytosis. Small enthesophyte at the insertion of the Achilles tendon. Soft tissue swelling. Impression: Subtle cortical irregularity of the dorsal aspect of the midfoot seen on the lateral view. Midfoot fracture could be considered. Correlate with location of pain. Follow up radiographs in 10-14 days may be helpful. This document has been electronically signed by: Rain Marks MD on 05/24/2025 13:47:33
--- NOTE | ~2025-05-24 | CT_ITS ---
CLINICAL HISTORY: ?midfoot fracture --- Additional Notes or Special Instructions: declining test CT left foot without contrast Comparison: CR - XR ANKLE LT MIN 3V - 05/24/25 13:21 EST CR - XR FOOT LT MIN 3V - 05/24/25 13:19 EST Findings: No acute fracture or dislocation. Cortical irregularity at the dorsal aspect of the midfoot seen on the radiographs corresponds to a well corticated linear ossific fragment measuring 6 mm at the dorsal aspect between the base of the 1st and 2nd metatarsals which could be an os intermetatarseum or a remote fracture (series 3, images 168 through 177 and series 8, image 53). No osseous lesion. The joint spaces are preserved without osteophytosis. Trace enthesophyte at the insertion of the Achilles tendon.. There is no joint effusion. There is no fluid collection. The muscles are normal in attenuation and bulk. Unremarkable limited evaluation of the vasculature. Impression: No acute fracture. This document has been electronically signed by: Rain Marks MD on 05/24/2025 20:33:26
--- NOTE | ~2025-05-24 | XR_ITS ---
CLINICAL HISTORY: L heel pain s p stomping Radiographs of the left ankle, 3 views Comparison: None available Findings: There is no fracture or dislocation. Chronic fragmentation of the os peroneum. The ankle mortise is congruent. The joint spaces are preserved without osteophytosis. Small enthesophyte at the insertion of the Achilles tendon. Soft tissue swelling. Impression: No fracture. This document has been electronically signed by: Rain Marks MD on 05/24/2025 13:45:24
[2025-05-24 13:08] VITALS: BP 146/83; PULSE 105; RESP 20; TEMP 36.3; O2SAT 98; BMI 29.9
--- NOTE | 2025-05-24 13:08 | ED.GENADULT ---
HPI - General Adult General Chief complaint: Extremity Problem Stated complaint: foot injury Time Seen by Provider: 05/24/25 16:31 Source: patient Mode of arrival: ambulatory Limitations: no limitations History of Present Illness ED Provider: MARSHAL HERNANDEZ PA-C HPI narrative: 34 year old female presents to the ED today for evaluation of left foot pain x3 days. Patient states that 3 days ago, she became irritated with her noisy upstairs neighbors. In an attempt to get them back , began stomping on the ground and murdock with her feet. Reports pain to her left heel since, primarily with bearing weight on the LLE. Has been able to ambulate with pain. Denies ankle or toe pain. Denies numbness/tingling/weakness of the LLE. Related Data Previous Rx's ?Medication ?Instructions ?Recorded naproxen 500 mg tablet 500 mg PO BID PRN pain #10 tabs 12/28/22 hydroxyzine HCl 25 mg tablet 25 mg PO TID PRN nausea and 02/26/24 vomiting #14 tabs vit no.95-ferrous 1 tab PO DAILY #60 tabs 12/18/24 fumarate 28 mg-folic acid 800 mcg tablet () ketorolac 10 mg tablet 10 mg PO Q8H PRN pain 3 days #9 05/25/25 tabs diclofenac sodium 75 mg 75 mg PO BID PRN pain (scale score 05/26/25 tablet,delayed release 7-10) #30 tabs Allergies Allergy/AdvReac Type Severity Reaction Status Date / Time amoxicillin Allergy Anaphylaxis Verified 05/26/25 13:44 Penicillins Allergy Difficulty Verified 05/26/25 13:44 Swallowing Review of Systems Review of Systems: Yes all other systems are reviewed and are negative [facility] Past Medical History Attestation statement: The following information was validated with the patient. Source: old records reviewed and nursing notes reviewed Medical History Anxiety delivery delivered Surgical History H/O hand surgery Social History Social History Alcohol intake: never Patient Tobacco Use Status: Current everyday Tobacco user Substance Use Type: Crack/Cocaine and Marijuana Physical Exam ED Vital Signs: Vital Signs - 24 hr 05/24/25 13:08 Temperature 97.4 F Pulse Rate 105 H Respiratory Rate 20 Blood Pressure 146/83 H Pulse Oximetry 98 Oxygen Delivery Method Room Air BMI result Body Mass Index 29.9 hypertensive, tachycardic, vitals are otherwise wnl General: Well appearing, in no acute distress. Skin: Warm, dry, intact. No rashes or lesions. Head: Normocephalic, atraumatic. EENT: Hearing is intact b/l. Conjunctiva clear. PERRLA. EOM intact. Moist mucous membranes.? Cardiac: Chest wall symmetric. RRR Lungs: Normal respiratory effort without accessory muscle use. CTA bilaterally Back: No midline spinous or paraspinal tenderness. No step off deformity. Ext: +L foot/ankle without deformity/swelling/skin changes. FROM intact to left ankle/toes without reported pain. ttp of entire heel, no palpable deformity, crepitus, fluctuance. no tenderness to ankle. 2+ DP pulse. ambulating w/ slight limping gait. Neuro: AOx3. Normal speech. sensation intact to light touch Course Course Course Narrative: 1749 -- x-ray left foot showing subtle cortical irregularity of the dorsal aspect of the midfoot - concern for midfoot fracture. > on exam, patient only endorses pain to her left heel. There is no evidence of calcaneal fracture on x-ray. Discussed with patient, will obtain CT scan left foot to further investigate/ rule out fracture. 2019 -- patient states she no longer wishes to wait for her CT scan results. Patient left the emergency department before myself or any of the other clinicians could review or explain physical exam findings, test results, need or lack there of for additional testing, treatment options, or a treatment plan. 2039 -- patient's ct scan is negative for acute fractures. Medications Administered Discontinued Medications Generic Name Dose Route Start Last Admin Trade Name Freq PRN Reason Stop Dose Admin Ibuprofen 600 mg 05/24/25 18:01 05/24/25 18:23 Ibuprofen 600 Mg Tablet PO 05/24/25 18:02 600 mg ONCE ONE Administration Medical Decision Making Medical Decision Making [facility] Narrative: 34 year old female presents to the ED today for evaluation of left foot pain x3 days. patient hypertensive, tachycardic. vitals are otherwise wnl. she is well appearing, in NAD. ambulating with slight limping gait. on exam, L foot/ankle without deformity/swelling/skin changes. FROM intact to left ankle/toes without reported pain. ttp of entire heel, no palpable deformity, crepitus, fluctuance. no tenderness to ankle. 2+ DP pulse Differential diagnosis includes contusion, fracture, dislocation. Unlikely NV compromise, threat to limb, compartment syndrome. Plan for xrs, pain control, re-evaluation. Differential Diagnosis Differential Diagnoses: The differential diagnosis associated with the presentation includes as above. Admission/Observation not indicated. Independent Interpretation I performed an independent interpretation of an: Plain X-Ray and CT Scan Interpretation: xr left foot without calcaneal fracture ct left foot without fracture Radiology Impression Discussion of test interpretation with radiology: I have reviewed the radiologist's reading. Radiologist Impression: Procedure(s): XR foot LT min 3V Accession Number(s): [id number] cc: [facility]; Marshal Hernandez~ Reason for Exam: L heel pain s/p stomping CLINICAL HISTORY: L heel pain s p stomping Radiographs of the left foot, 3 views Comparison: None available Findings: Subtle cortical irregularity at the dorsal aspect of the midfoot in the region of the proximal metaphysis of the metatarsals seen on the lateral view. No dislocation. Chronic fragmentation of the os peroneum. The joint spaces are preserved without osteophytosis. Small enthesophyte at the insertion of the Achilles tendon. Soft tissue swelling. Impression: Subtle cortical irregularity of the dorsal aspect of the midfoot seen on the lateral view. Midfoot fracture could be considered. Correlate with location of pain. Follow up radiographs in 10-14 days may be helpful. This document has been electronically signed by: Rain Marks MD on 05/24/2025 13:47:33 Procedure(s): CT foot LT wo IV con Accession Number(s): [id number] cc: [facility]; Marshal Hernandez~ Report Number: [id number]: Total DLP = 165.00 mGy-cm Reason for Exam: ?midfoot fracture CLINICAL HISTORY: ?midfoot fracture --- Additional Notes or Special Instructions: declining test CT left foot without contrast Comparison: CR - XR ANKLE LT MIN 3V - 05/24/25 13:21 EST CR - XR FOOT LT MIN 3V - 05/24/25 13:19 EST Findings: No acute fracture or dislocation. Cortical irregularity at the dorsal aspect of the midfoot seen on the radiographs corresponds to a well corticated linear ossific fragment measuring 6 mm at the dorsal aspect between the base of the 1st and 2nd metatarsals which could be an os intermetatarseum or a remote fracture (series 3, images 168 through 177 and series 8, image 53). No osseous lesion. The joint spaces are preserved without osteophytosis. Trace enthesophyte at the insertion of the Achilles tendon.. There is no joint effusion. There is no fluid collection. The muscles are normal in attenuation and bulk. Unremarkable limited evaluation of the vasculature. Impression: No acute fracture. This document has been electronically signed by: Rain Marks MD on 05/24/2025 20:33:26 External Record Review External record reviewed: Inpatient record Prescription Management I considered prescription management with: Pain Medication Social Determinants Patient?s care significantly limited by Social Determinants of Health including: Other Social Determinant of Health Critical Care Time Critical Care Time Critical Care Time: No Discharge Plan Discharge Clinical Impression: Left foot pain Patient Disposition: Left W/O Completing Treatment Prescriptions: No Action ketorolac 10 mg tablet 10 mg PO Q8H PRN (Reason: pain) 3 Days Qty: 9 0RF naproxen 500 mg tablet 500 mg PO BID PRN (Reason: pain) Qty: 10 0RF hydroxyzine HCl 25 mg tablet 25 mg PO TID PRN (Reason: nausea and vomiting) Qty: 14 0RF Rx Instructions: p.r.n. anxiety PNV no.95-ferrous fumarate-FA [] 28 mg iron- 800 mcg tablet 1 tab PO DAILY Qty: 60 0RF diclofenac sodium 75 mg tablet,delayed release (DR/EC) 75 mg PO BID PRN (Reason: pain (scale score 7-10)) Qty: 30 1RF Rx Instructions: Take 1 tablet with food twice a day for pain Discharge Date/Time: 05/24/25 20:22
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
--- NOTE | 2025-05-24 20:20 | PC.NURSE ---
Pt states unable to wait for CT results and is leaving. Provider made aware. Risk of leaving without completing treatment discussed with pt. Pt is adamant on leaving and not wanting to wait any more. Pt advised to continue follow up care for the foot with her primary care and is welcome to return to complete treatment if she changes her mind. Pt verbalizes understanding risk of leaving without completing treatment.
== END 2025-05-24 20:22 | disposition left against medical advice (07) ==
PROVIDERS: Emergency Provider Emergency Medicine Emergency Medical Services; PCP Dentist General Practice
DX: M79.672 Pain in left foot (principal)
CPT/HCPCS: 73610; 73630; 73700; 99282; 99284

== ENCOUNTER → 2025-05-24 13:10 | Outpatient (BNV) | payer MEDICAID, SELFPAY | PROVIDERS: PCP Dentist General Practice; Visit Provider Radiology Diagnostic Radiology | DX: Z03.89 Encounter for observation for other suspected diseases and conditions ruled out (principal); M79.672 Pain in left foot | CPT/HCPCS: 73610; 73630; 73700 ==

== ENCOUNTER 2025-05-25 08:35 | Emergency (ER) | payer MEDICAID, SELFPAY ==
[2025-05-25 08:50] VITALS: BP 147/76; PULSE 79; RESP 16; TEMP 36.6; O2SAT 98; BMI 30.9
--- NOTE | 2025-05-25 09:20 | ED_ITS ---
HPI - General Adult General Chief complaint: Extremity Problem Stated complaint: L foot inj, seen t1 Time Seen by Provider: 05/25/25 09:17 Source: patient, family (Significant other at bedside), RN notes reviewed and old records reviewed Mode of arrival: ambulatory Limitations: no limitations History of Present Illness ED Provider: RENEA Harden HPI narrative: 34-year-old female with medical history of anxiety presents to the ED due to 4 days of L foot pain. Patient states she was stomping on her linoleum floor due to noisy neighbors when she immediately felt pain in the heel of the L foot. Patient was seen in the department yesterday with xr questioning midfoot fracture, and CT of the foot to confirm but left before official read from radiologist. Patient returns today with mild swelling of the heel and continuous pain. Patient denies chest pain, SOB, abdominal pain, nausea, vomiting, headaches, visual changes, black/tarry stool, urinary symptoms MD complaint: L foot pain Related Data Previous Rx's ?Medication ?Instructions ?Recorded naproxen 500 mg tablet 500 mg PO BID PRN pain #10 t abs 12/28/22 hydroxyzine HCl 25 mg tablet 25 mg PO TID PRN nausea a nd 02/26/24 vomiting #14 tabs vit no.95-ferrous 1 tab PO DAILY #60 tabs 04/04 fumarate 28 mg-folic acid 800 mcg tablet () ketorolac 10 mg tablet 10 mg PO Q8H PRN pain 3 days #9 05/25/25 tabs Allergies Allergy/AdvReac Type Severity Reaction Status Date / Time amoxicillin Allergy Anaphylaxis Verified 05/25/25 08:52 Penicillins Allergy Difficulty Verified 05/25/25 08:52 Swallowing Review of Systems Review of Systems: Yes all other systems are reviewed and are negative [facility] Past Medical History Attestation statement: The following information was validated with the patient. Source: old records reviewed and nursing notes reviewed Medical History Anxiety delivery delivered Surgical History H/O hand surgery Social History Social History Alcohol intake: never Patient Tobacco Use Status: Current everyday Tobacco user Substance Use Type: Crack/Cocaine and Marijuana Advance Directives: No Advance Directives Information Provided: No Physical Exam ED Vital Signs: Vital Signs - 24 hr 05/25/25 08:50 Temperature 98 F Pulse Rate 79 Respiratory Rate 16 Blood Pressure 147/76 H Pulse Oximetry 98 Oxygen Delivery Method Room Air BMI result Body Mass Index 30.9 GENERAL APPEARANCE: ?AxOx4, generally well-appearing, no acute distress. HEENT: ?NC, AT. MMM. EOMI, clear conjunctiva, oropharynx clear. NECK: ?Supple without lymphadenopathy.? No stiffness or restricted ROM. HEART:? Normal rate and regular rhythm, normal S1/S1, no m/r/g LUNGS:? CTAB, moving air well. No crackles or wheezes are heard. ABDOMEN: ?Soft, nontender, nondistended with good bowel sounds heard. BACK: No CVAT, no obvious deformity. EXTREMITIES: ?Without cyanosis, clubbing or edema. L foot TTP over the calcaneal aspect with mild edema, no ecchymosis, erythema or warmth to the area, the skin is intact, no punctate oliveira, or open wounds noted, DP pulses 2+, appropriate capillary refill time, SILT, full ROM of the foot, patient is able to bear weight however does have pain NEUROLOGICAL: ?Grossly nonfocal. Alert and oriented, moving all 4 extremities. Observed to ambulate with normal gait. Skin: ?Warm and dry without any rash. Medical Decision Making Medical Decision Making MDM Narrative: 34-year-old female with medical history of anxiety presents to the ED due to 4 days of L foot pain. Patient states she was stomping on her linoleum floor due to noisy neighbors when she immediately felt pain in the heel of the L foot. Patient was seen in the department yesterday with xr questioning midfoot fracture, and CT of the foot to confirm but left before official read from radiologist. Patient returns today with mild swelling of the heel and consistent pain. XR L foot that was done yesterday questions a possible mid foot fracture CT L foot reveals a possible accessory bone, or remote fracture but no acute fracture Patient with TTP and mild edema of the plantar aspect of the calcaneus extending into the lateral arch of the foot. The limb is neurovascularly intact and patient is able to ambulate and bear weight but does have pain. Patient is being medicated with 30 mg IM Toradol and 975mg po tylenol for pain management. Patient will be placed in post op shoe for comfort and stability with referral to podiatry for follow up. Patient will be discharged with 3 days of toradol for inflammation and pain. Patient feels well enough for self care. Patient is in agreement with the plan. Differential Diagnosis Differential Diagnoses: The differential diagnosis associated with the presentation includes Foot fracture Foot sprain Cellulitis Admission/Observation Consideration of admission/observation: Escalation of care including admission/observation considered Radiology Impression Discussion of test interpretation with radiology: I have reviewed the radiologist's reading. Independent Historian Clinical information obtained from an independent historian. History obtained from or confirmed by: Spouse (Significant other at bedside) External Record Review External record reviewed: Inpatient record, Office record and Outpatient record Chronic Conditions Patient?s care impacted by: Other (Anxiety) Discharge Plan Discharge Clinical Impression: Sprain of foot Patient Disposition: Home, Self-Care Additional Instructions: You were evaluated in the emergency department due to left foot pain. The x-ray of your left foot questions and midfoot fracture, the CT scan of your left foot reveals an old healed fracture. Due to your pain, you are being placed in a postop shoe with referral to Podiatry for follow up. You were medicated in the department with 30 mg of an intramuscular injection of Toradol, and 975 mg of oral Tylenol for pain management. Are being prescribed a 3 day course of Toradol for pain and inflammation. While on this medication do not take any other NSAIDs such as ibuprofen, Motrin, Aleve, Naprosyn, meloxicam, diclofenac topical gels. While on this medication you can take 500 mg of Tylenol every 6 hours. I encourage you to ice the affected area, with frequent elevation to manage pain and swelling. Please return to the emergency department if you have worsening pain, inability to bear weight on the foot, numbness and tingling to the extremity, or any new/worsening/concerning symptoms. Prescriptions: New ketorolac 10 mg tablet 10 mg PO Q8H PRN (Reason: pain) 3 Days Qty: 9 0RF No Action naproxen 500 mg tablet 500 mg PO BID PRN (Reason: pain) Qty: 10 0RF hydroxyzine HCl 25 mg tablet 25 mg PO TID PRN (Reason: nausea and vomiting) Qty: 14 0RF Rx Instructions: p.r.n. anxiety PNV no.95-ferrous fumarate-FA [] 28 mg iron- 800 mcg tablet 1 tab PO DAILY Qty: 60 0RF Referrals: [facility] [Provider Group, Podiatry] Print Language: Guatemalan
[2025-05-25 10:20] VITALS: BP 147/76; PULSE 79; RESP 16; TEMP 36.6; O2SAT 98
--- NOTE | 2025-05-25 10:21 | PC.NURSE ---
PT was seen by provider medicated as charted and discharged
== END 2025-05-25 10:22 | disposition home or self-care (01) ==
PROVIDERS: Emergency Provider Student in an Organized Health Care Education/Training Program; PCP Dentist General Practice
DX: S93.602A Unspecified sprain of left foot, initial encounter (principal); W22.09XA Striking against other stationary object, initial encounter; Y93.89 Activity, other specified; Y92.039 Unspecified place in apartment as the place of occurrence of the external cause; Y99.9 Unspecified external cause status
CPT/HCPCS: 96372; 99283; 99284; J1885

== ENCOUNTER 2025-05-26 13:32 | Outpatient (AMB) | payer MEDICAID, SELFPAY ==
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
[2025-05-26 13:43] VITALS: BMI 30.9
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
== END 2025-05-26 14:00 | disposition home or self-care (01) ==
LOC: HO.HPODS 13:33
PROVIDERS: PCP Dentist General Practice; Visit Provider Student in an Organized Health Care Education/Training Program
DX: S93.692A Other sprain of left foot, initial encounter (principal)
CPT/HCPCS: 99204

== ENCOUNTER → 2025-05-26 13:32 | Outpatient (BNVA) | payer MEDICAID, SELFPAY | PROVIDERS: PCP Dentist General Practice; Visit Provider Student in an Organized Health Care Education/Training Program | DX: S93.692A Other sprain of left foot, initial encounter (principal); X58.XXXA Exposure to other specified factors, initial encounter; Y93.9 Activity, unspecified; Y92.9 Unspecified place or not applicable; Y99.9 Unspecified external cause status | CPT/HCPCS: 99202 ==

== ENCOUNTER 2025-06-05 17:47 | Emergency (ER) | payer MEDICAID, SELFPAY ==
--- OUTSIDE RECORDS SUMMARY | 2025-06-05 16:34 | XMS_ITS | Encounter Summary ---
Author Organization [facility] Address [address] [place] [address] Care Team Providers Care Film Or Videotape Editor Name Role Phone Delmy Ma Primary Care Provider [phone] Reason for Visit * Reason Comments Flu Symptoms Encounter Details Date Type Department Care Team (Late st Contact Info) Description 06/05/2025 4:34 PM EST - 06/05/2025 5:31 PM EST Emergency [facility] Emergency [address] [place] [address] Discharge Disposition: Home or Self [...] on filedocumented in this encounter Care Teams Film Or Videotape Editor Relationship Specialty Start Date End Date Delmy Ma PA [address] [place] [id number] PCP - General 02/02/23 documented as of this encounter
[2025-06-05 18:14] VITALS: BP 150/89; PULSE 109; RESP 20; TEMP 37.5; O2SAT 95; BMI 30.4
--- NOTE | 2025-06-05 18:15 | ED.URI ---
HPI - URI/Sore Throat General Chief Complaint: Upper Respiratory Symptoms Stated Complaint: throat pain, coughing, flu symptoms Related Data Previous Rx's ?Medication ?Instructions ?Recorded naproxen 500 mg tablet 500 mg PO BID PRN pain #10 tabs 12/28/22 hydroxyzine HCl 25 mg tablet 25 mg PO TID PRN nausea and 02/26/24 vomiting #14 tabs vit no.95-ferrous 1 tab PO DAILY #60 tabs 12/18/24 fumarate 28 mg-folic acid 800 mcg tablet () ketorolac 10 mg tablet 10 mg PO Q8H PRN pain 3 days #9 05/25/25 tabs diclofenac sodium 75 mg 75 mg PO BID PRN pain (scale score 05/26/25 tablet,delayed release 7-10) #30 tabs benzonatate 200 mg capsule 200 mg PO TID PRN cough #20 caps 06/06/25 ondansetron 4 mg disintegrating 4 mg PO Q8H PRN nausea and 06/06/25 tablet vomiting #20 tabs Allergies Allergy/AdvReac Type Severity Reaction Status Date / Time amoxicillin Allergy Anaphylaxis Verified 06/06/25 11:51 Penicillins Allergy Difficulty Verified 06/06/25 11:51 Swallowing PMFSH Past Medical History Medical History Anxiety delivery delivered Surgical History H/O hand surgery Social History Social History Alcohol intake: never Patient Tobacco Use Status: Current everyday Tobacco user Substance Use Type: Crack/Cocaine and Marijuana Advance Directives: No Advance Directives Information Provided: Yes Do you have a plan to hurt others: No Plan Physical Exam Vital Signs: Vital Signs: Last Vital Signs Temp 99.5 F 06/05/25 18:14 Pulse 109 H 06/05/25 18:14 Resp 20 06/05/25 18:14 BP 150/89 H 06/05/25 18:14 Pulse Ox 95 06/05/25 18:14 O2 Del Method Room Air 06/05/25 18:14 BMI result Body Mass Index 30.4 Course Course Course Narrative: This is a Rapid Medical Exam performed in triage by Whit Rincon PA-C. Full HPI, ROS and PE to be performed by primary ED provider. 34-year-old female with a past medical history anxiety, presenting to the ED c/o sore throat, myalgias, congestion, cough x 2 days. Son home sick with similar symptoms PE: NAD, nontoxic appearing, talking in complete sentences. Ambulating with steady gait Plan: SARs, rapid strep Discharge Plan Discharge Clinical Impression: Viral infection Patient Disposition: Left W/O Completing Treatment Prescriptions: No Action ketorolac 10 mg tablet 10 mg PO Q8H PRN (Reason: pain) 3 Days Qty: 9 0RF benzonatate 200 mg capsule 200 mg PO TID PRN (Reason: cough) Qty: 20 0RF ondansetron 4 mg tablet,disintegrating 4 mg PO Q8H PRN (Reason: nausea and vomiting) Qty: 20 0RF naproxen 500 mg tablet 500 mg PO BID PRN (Reason: pain) Qty: 10 0RF hydroxyzine HCl 25 mg tablet 25 mg PO TID PRN (Reason: nausea and vomiting) Qty: 14 0RF Rx Instructions: p.r.n. anxiety PNV no.95-ferrous fumarate-FA [] 28 mg iron- 800 mcg tablet 1 tab PO DAILY Qty: 60 0RF diclofenac sodium 75 mg tablet,delayed release (DR/EC) 75 mg PO BID PRN (Reason: pain (scale score 7-10)) Qty: 30 1RF Rx Instructions: Take 1 tablet with food twice a day for pain Discharge Date/Time: 06/05/25 22:51
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
== END 2025-06-05 22:51 | disposition left against medical advice (07) ==
PROVIDERS: Emergency Provider Emergency Medicine; PCP Dentist General Practice
DX: B34.9 Viral infection, unspecified (principal); Z53.29 Procedure and treatment not carried out because of patient's decision for other reasons; R05.9 Cough, unspecified; J02.9 Acute pharyngitis, unspecified
CPT/HCPCS: 99281

== ENCOUNTER 2025-06-06 11:44 | Emergency (ER) | payer MEDICAID, SELFPAY ==
--- OUTSIDE RECORDS SUMMARY | 2025-06-05 16:34 | XMS_ITS | Encounter Summary ---
Author Organization [facility] Address [address] [place] [address] Care Team Providers Care Diving Supervisor Name Role Phone Delmy Ma Primary Care Provider [phone] Reason for Visit * Reason Comments Flu Symptoms Encounter Details Date Type Department Care Team (Late st Contact Info) Description 06/05/2025 4:34 PM EST - 06/05/2025 5:31 PM EST Emergency [facility] Emergency [address] [place] [address] Discharge Disposition: Home or Self Care Social History Tobacco Use Types Packs/Day Years Used Date Smoking Tobacco: Every Day Alcohol Use Standard Drinks/Week Comments No 0 (1 standard drink = 0.6 oz pur e alcohol) Comments Unknown Sex and Gender Information Value Date Recorded Sex Assigned at Not on file Legal Sex Female 11:23 PM EST Gender Identity Not on file Sexual Orientation Not on file documented as of this encounter Discharge Disposition Disposition Code Departure Means Destination Home or Self Care documented in this encounter Progress Notes * Xavi Pabon RN - 06/05/2025 4:35 PM EST Pt presents with flu like symptoms x 2 days, reports son is also sick. Pt is ambulatory, a/ox3 documented in this encounter Plan of Treatment Not on file documented as of this encounter Visit Diagnoses Not on filedocumented in this encounter Care Teams Diving Supervisor Relationship Specialty Start Date End Date Delmy Ma PA [address] [place] [id number] PCP - General 02/02/23 documented as of this encounter
--- NOTE | 2025-06-06 11:48 | ED_ITS ---
HPI - General Adult General Chief complaint: Upper Respiratory Symptoms Stated complaint: Coughing, Bleeding Out Mouth/ Nose, Fever, EarAche Time Seen by Provider: 06/06/25 13:51 Source: patient, RN notes reviewed and old records reviewed Mode of arrival: ambulatory Limitations: no limitations History of Present Illness ED Provider: Carmen TRAN narrative: 34-year-old female presents for evaluation of cough, body aches and congestion for the last 2 days. She reports that she is unable to sleep well because of the amount of coughing. She has diffuse body aches but no sharp chest pain. She has some nausea without vomiting. She reports that she was coughing to the point of having a nosebleed from the right side. This has resolved no other complaints or concerns at this time Related Data Previous Rx's ?Medication ?Instructions ?Recorded naproxen 500 mg tablet 500 mg PO BID PRN pain #10 t abs 12/28/22 hydroxyzine HCl 25 mg tablet 25 mg PO TID PRN nausea a nd 02/26/24 vomiting #14 tabs vit no.95-ferrous 1 tab PO DAILY #60 tabs 04/04 fumarate 28 mg-folic acid 800 mcg tablet () ketorolac 10 mg tablet 10 mg PO Q8H PRN pain 3 days #9 05/25/25 tabs diclofenac sodium 75 mg 75 mg PO BID PRN pain (scale score 05/26/25 tablet,delayed release 7-10) #30 tabs benzonatate 200 mg capsule 200 mg PO TID PRN cough #20 caps 06/06/25 ondansetron 4 mg disintegrating 4 mg PO Q8H PRN nausea and 06/06/25 tablet vomiting #20 tabs Allergies Allergy/AdvReac Type Severity Reaction Status Date / Time amoxicillin Allergy Anaphylaxis Verified 06/06/25 11:51 Penicillins Allergy Difficulty Verified 06/06/25 11:51 Swallowing Review of Systems Constitutional: Constitutional: Reports body ache(s), Reports chills, Reports fever(s) and Reports headache(s) ENT: Reports headache(s), Reports epistaxis and Denies sore throat Cardiovascular: Cardiovascular: Denies chest pain and Denies dyspnea on exertion Respiratory: Respiratory: Reports chest congestion, Reports cough and Denies dyspnea on exertion Gastrointestinal: Gastrointestinal: Denies abdominal pain, Reports nausea and Denies vomiting Musculoskeletal: Musculoskeletal: Denies back pain and Reports myalgias Integumentary/Breasts: Skin/Breast: Denies rash Neurologic: Reports headache(s) Psychiatric: Psychiatric: Denies anxiety PMFSH Past Medical History Medical History Anxiety delivery delivered Surgical History H/O hand surgery Social History Social History Alcohol intake: never Patient Tobacco Use Status: Current everyday Tobacco user Substance Use Type: Crack/Cocaine and Marijuana Advance Directives: No Advance Directives Information Provided: Yes Do you have a plan to hurt others: No Plan Physical Exam ED Vital Signs: Vital Signs - 24 hr 06/06/25 11:49 06/06/25 14:00 Temperature 97.3 F 97.3 F Pulse Rate 102 H 102 H Respiratory Rate 18 18 Blood Pressure 124/88 124/88 Pulse Oximetry 95 95 Oxygen Delivery Method Room Air Room Air BMI result Body Mass Index 30.4 Const General: healthy appearing, comfortable, no acute distress, alert and awake Nutritional Appearance: well nourished Orientation/consciousness: patient oriented x3 HENMT Other: No active epistaxis Head: Yes normocephalic and Yes atraumatic Eyes Eyelids: Yes eyelids normal Conjunctivae: conjunctivae normal Sclerae: sclerae normal Corneas: corneas normal Pupils: Equal, round and reactive pupils present EOM: EOMs intact bilaterally Neck Neck: Yes full ROM Resp Effort & Inspection: normal respiratory effort, able to speak in complete sentences, no audible wheezes and not labored Auscultation: clear to auscultation bilaterally Cardio Rate: regular rate Rhythm: regular rhythm GI Inspection: No distended Palpation (GI): Soft to palpation, not firm, nontender, no guarding and not rigid Skin General skin exam: elasticity normal Neuro General: patient oriented x3 Cranial nerves: Yes Equal, round and reactive pupils present and Yes Bilaterally intact EOM present Cognition (Neuro): normal cognition Extrem Other: Moving all extremities well without any obvious deformities Course Course Course Narrative: RME, this is a rapid medical exam performed by Amos Morales please refer to prima provider for complete H&P- 34 year old female presents for evaluation of fevers, cough, and body aches. Positive sick contacts at home. Plan for viral swabs Medical Decision Making Medical Decision Making [facility] Narrative: 34-year-old female presents for evaluation of flu-like symptoms. She did not fact test positive for influenza A. She is just slightly tachycardic to 102 and quite well appearing. Lungs are clear to auscultation, I do not see any indication for labs and a chest x-ray. She will be discharged with symptomatic care Differential Diagnosis Differential Diagnoses: The differential diagnosis associated with the pres entation includes influenza COVID-19 Bronchitis Pneumonia Lab Data [facility] Lab Attestation statement: I reviewed the patient's lab results. positive for influenza A Labs: Lab Results 06/06/25 Range/Units 13:03 Influenza Type A (PCR) POSITIVE A (Negative) Influenza Type B (PCR) NEGATIVE (Negative) RSV RNA Qual (PCR) NEGATIVE (Negative) SARS-CoV-2 RNA (RT-PCR) NEGATIVE (Negative) S. pyogenes GrpA REYES Negative (Negative) Discharge Plan Discharge Clinical Impression: Influenza A Patient Disposition: Home, Self-Care Instructions: Influenza (ED) Additional Instructions: you tested positive for influenza. You may use Tessalon Perles as needed for coughing. Use Zofran for nausea and vomiting. Use ibuprofen and Tylenol for fevers and body aches. Follow up with your primary doctor, return for new or worsening symptoms Prescriptions: New benzonatate 200 mg capsule 200 mg PO TID PRN (Reason: cough) Qty: 20 0RF ondansetron 4 mg tablet,disintegrating 4 mg PO Q8H PRN (Reason: nausea and vomiting) Qty: 20 0RF No Action ketorolac 10 mg tablet 10 mg PO Q8H PRN (Reason: pain) 3 Days Qty: 9 0RF naproxen 500 mg tablet 500 mg PO BID PRN (Reason: pain) Qty: 10 0RF hydroxyzine HCl 25 mg tablet 25 mg PO TID PRN (Reason: nausea and vomiting) Qty: 14 0RF Rx Instructions: p.r.n. anxiety PNV no.95-ferrous fumarate-FA [] 28 mg iron- 800 mcg tablet 1 tab PO DAILY Qty: 60 0RF diclofenac sodium 75 mg tablet,delayed release (DR/EC) 75 mg PO BID PRN (Reason: pain (scale score 7-10)) Qty: 30 1RF Rx Instructions: Take 1 tablet with food twice a day for pain Interventions: ED Discharge Assessment Last Done: 06/06/25 14:00 Discharge Date/Time: 06/06/25 14:00 Print Language: Slovak
[2025-06-06 11:49] VITALS: BP 124/88; PULSE 102; RESP 18; TEMP 36.3; O2SAT 95; BMI 30.4
[2025-06-06 13:17] LABS: Strep A Nucleic Acid Negative (Negative)
[2025-06-06 13:47] LABS: Resp Syncy Virus RNA Qual PCR NEGATIVE (Negative); SARS COV2 PCR INHOUSE NEGATIVE (Negative)
[2025-06-06 14:00] VITALS: BP 124/88; PULSE 102; RESP 18; TEMP 36.3; O2SAT 95
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
== END 2025-06-06 14:00 | disposition home or self-care (01) ==
PROVIDERS: Physician Assistant; Emergency Provider Emergency Medicine; PCP Dentist General Practice
DX: J10.1 Influenza due to other identified influenza virus with other respiratory manifestations (principal); R05.9 Cough, unspecified; Z03.818 Encounter for observation for suspected exposure to other biological agents ruled out
CPT/HCPCS: 87637; 87651; 99282; 99283